=== PATIENT | female | born 1950 | race Caucasian/White ===

== ENCOUNTER 2018-06-05 09:02 | Outpatient (REF) | payer MEDICARE, OTHER, SELFPAY ==
[2018-06-05 12:11] LABS: Cholesterol 181 mg/dL (50-200); Glucose 128 mg/dL (70-100); HDL Cholesterol 42 mg/dL (40-60); LDL CHOLESTEROL 96 mg/dL (<100); Triglyceride 351 mg/dL (30-150)
== END 2018-06-05 09:22 ==
LOC: NCHCN 09:02
PROVIDERS: Visit Provider Family Medicine
DX: R73.01 Impaired fasting glucose (principal); E78.00 Pure hypercholesterolemia, unspecified
CPT/HCPCS: 80061; 82947; 83721

== ENCOUNTER 2018-06-12 09:54 | Outpatient (REF) | payer MEDICARE, SELFPAY ==
[2018-06-12 13:18] LABS: Hemoglobin A1C 6.4 % (4.5-6.2)
[2018-06-12 13:19] LABS: ALT 56 U/L (12-78); AST 42 U/L (15-37); Alkaline Phosphatase 91 U/L (46-116); Anion Gap 10.7 mmol/L (3-11); BUN 20 mg/dL (7-18); Bilirubin, Total 0.5 mg/dL (0.2-1.0); CO2 26.3 mmol/L (21.0-32.0); Calcium 10.1 mg/dL (8.5-10.1); Chloride 103 mmol/L (98-107); Glucose 203 mg/dL (70-100); Potassium 4.4 mmol/L (3.5-5.1); Sodium 140 mmol/L (136-145); Total Protein 7.2 g/dL (6.4-8.2)
== END 2018-06-12 10:14 ==
LOC: NCHCN 09:54
PROVIDERS: Visit Provider Family Medicine
DX: E83.52 Hypercalcemia (principal); R73.01 Impaired fasting glucose
CPT/HCPCS: 80053; 83036

== ENCOUNTER 2018-07-16 11:51 | Outpatient (REF) | payer MEDICARE, SELFPAY ==
[2018-07-16 21:37] LABS: Bilirubin Negative (Negative); Blood Moderate (Negative); Clarity Cloudy; Glucose Negative (Negative); Ketones Negative (Negative); Leukocyte Esterase Negative (Negative); Nitrite Negative (Negative); Specific Gravity 1.025 (1.005-1.025)
[2018-07-16 21:55] LABS: Bacteria Many HPF (Negative); C & S Indicated? C&S Done As Ordered; Casts Negative LPF (Negative); Crystals Negative HPF (Negative); Epithelial Cells Few HPF (Negative); Mucus Negative (Negative); RBC Negative (0-2); WBC 0-2 HPF (0-5)
== END 2018-07-16 12:11 ==
LOC: NCHCN 11:51
PROVIDERS: Visit Provider Nurse Practitioner Family
DX: M54.89 Other dorsalgia (principal); R82.90 Unspecified abnormal findings in urine
CPT/HCPCS: 81003; 81015; 87086

== ENCOUNTER 2018-07-22 12:10 | Outpatient (REF) | payer MEDICARE, SELFPAY ==
[2018-07-22 12:41] LABS: Bilirubin Negative (Negative); Blood Negative (Negative); Clarity Clear; Glucose 500 mg/dL (Negative); Ketones Trace mg/dL (Negative); Leukocyte Esterase Negative (Negative); Nitrite Negative (Negative); Specific Gravity >= 1.030 (1.005-1.025)
== END 2018-07-22 12:30 ==
LOC: NCHCN 12:10
PROVIDERS: Visit Provider Family Medicine
DX: R31.9 Hematuria, unspecified (principal)
CPT/HCPCS: 81003; 87086

== ENCOUNTER → 2018-10-09 10:12 | Outpatient (BNVA) | payer MEDICARE, OTHER, SELFPAY | PROVIDERS: Visit Provider Nurse Practitioner Adult Health | DX: G56.03 Carpal tunnel syndrome, bilateral upper limbs (principal) | CPT/HCPCS: 95909; 99213 ==

== ENCOUNTER 2018-12-04 11:20 | Outpatient (REF) | payer MEDICARE, OTHER, SELFPAY ==
[2018-12-04 21:11] LABS: Hemoglobin A1C 6.6 % (4.5-6.2)
[2018-12-04 21:17] LABS: ALT 51 U/L (12-78); AST 30 U/L (15-37); Anion Gap 7.8 mmol/L (3-11); BUN 23 mg/dL (7-18); CO2 28.2 mmol/L (21.0-32.0); CREATININE 0.86 mg/dL (0.55-1.02); Calcium 10.7 mg/dL (8.5-10.1); Chloride 104 mmol/L (98-107); Glucose 96 mg/dL (70-100); Potassium 4.7 mmol/L (3.5-5.1); Sodium 140 mmol/L (136-145); TSH (W/Ref FT4) 4.63 uIU/mL (0.358-3.74)
[2018-12-04 21:51] LABS: FREE T4 0.76 ng/dL (0.76-1.46)
== END 2018-12-04 11:40 ==
LOC: NCHCN 11:20
PROVIDERS: PCP Nurse Practitioner Family; Visit Provider Nurse Practitioner Family
DX: R73.01 Impaired fasting glucose (principal); E83.52 Hypercalcemia; R74.8 Abnormal levels of other serum enzymes; E21.3 Hyperparathyroidism, unspecified; I10 Essential (primary) hypertension
CPT/HCPCS: 80048; 83036; 84439; 84443; 84450; 84460

== ENCOUNTER 2018-12-25 10:57 | Outpatient (REF) | payer MEDICARE, OTHER, SELFPAY | END 2018-12-25 11:17 | LOC: NCHCN 10:57 | PROVIDERS: PCP Nurse Practitioner Family; Visit Provider Family Medicine | DX: R31.9 Hematuria, unspecified (principal) | CPT/HCPCS: 87077; 87086; 87186 ==

== ENCOUNTER 2019-01-29 06:00 | Outpatient (CLI) | payer MEDICARE, OTHER, SELFPAY ==
--- NOTE | 2019-01-29 08:57 | DI.MAMMO_ITS ---
SYMPTOMS/DIAGNOSIS: SCREENING, Z12.31 MAMMOGRAM: Mammograms were interpreted according to the usual protocol including computer analysis with CAD system, tomosynthesis and C view imaging. The breast tissue is of moderate radiodensity. There is no evidence of a dominant mass. There are no suspicious calcifications and there has been no significant interval change when compared with prior images. SUMMARY: No evidence of malignancy, Category I, yearly screening mammography is recommended. Category B for breast density. SA ASSESSMENT OF FINDINGS: Negative. Category 1. Patient will receive a letter notifying them of these results. BI-RADS category B. There are scattered areas of fibroglandular density.
== END 2019-01-29 06:20 ==
PROVIDERS: PCP Nurse Practitioner Family; Visit Provider Family Medicine
DX: Z12.31 Encounter for screening mammogram for malignant neoplasm of breast (principal)
CPT/HCPCS: 77063; 77067

== ENCOUNTER 2019-05-28 08:31 | Outpatient (REF) | payer MEDICARE, OTHER, SELFPAY ==
[2019-05-28 14:54] LABS: TSH 6.37 uIU/mL (0.36-3.74)
[2019-05-28 18:32] LABS: Hemoglobin A1C 6.5 % (4.5-6.2)
== END 2019-05-28 08:51 ==
LOC: NCHCN 08:31
PROVIDERS: PCP Nurse Practitioner Family; Visit Provider Family Medicine
DX: E03.9 Hypothyroidism, unspecified (principal); R73.01 Impaired fasting glucose; E66.9 Obesity, unspecified
CPT/HCPCS: 83036; 84443

== ENCOUNTER 2019-08-27 08:36 | Outpatient (REF) | payer MEDICARE, OTHER, SELFPAY ==
[2019-08-27 12:40] LABS: Hemoglobin A1C 6.6 % (3.8-5.6)
[2019-08-27 12:46] LABS: TSH 6.23 uIU/mL (0.36-3.74)
== END 2019-08-27 08:56 ==
LOC: NCHCN 08:36
PROVIDERS: PCP Nurse Practitioner Family; Visit Provider Family Medicine
DX: E11.9 Type 2 diabetes mellitus without complications (principal); E03.9 Hypothyroidism, unspecified; E21.3 Hyperparathyroidism, unspecified; E66.9 Obesity, unspecified
CPT/HCPCS: 83036; 84443

== ENCOUNTER 2019-11-05 13:21 | Outpatient (REF) | payer MEDICARE, OTHER, SELFPAY ==
[2019-11-05 12:35] LABS: TSH (W/Ref FT4) 3.98 uIU/mL (0.36-3.74)
[2019-11-05 13:14] LABS: FREE T4 1.27 ng/dL (0.76-1.46)
== END 2019-11-05 13:41 ==
LOC: NCHCN 13:21
PROVIDERS: PCP Nurse Practitioner Family; Visit Provider Urology
DX: E03.9 Hypothyroidism, unspecified (principal)
CPT/HCPCS: 84439; 84443

== ENCOUNTER 2020-04-06 09:31 | Outpatient (REF) | payer MEDICARE, OTHER, SELFPAY ==
[2020-04-06 20:43] LABS: Anion Gap 11.1 mmol/L (3-11); BUN 17 mg/dL (7-18); C-Reactive Protein 0.93 mg/dL (0.0-0.3); CO2 24.9 mmol/L (21.0-32.0); CREATININE 0.97 mg/dL (0.55-1.02); Calcium 10.3 mg/dL (8.5-10.1); Chloride 101 mmol/L (98-107); Estimated GFR 56.61 (mL/min/1.73m2); Glucose 266 mg/dL (74-106); Potassium 4.5 mmol/L (3.5-5.1); Sodium 137 mmol/L (136-145)
[2020-04-06 20:48] LABS: ESR 12 mm/hr (0-30)
[2020-04-11 13:50] LABS: TSH (W/Ref FT4) 4.22 uIU/mL (0.36-3.74)
[2020-04-11 14:08] LABS: FREE T4 1.26 ng/dL (0.76-1.46)
== END 2020-04-06 09:51 ==
LOC: NCHCN 09:31
PROVIDERS: PCP Nurse Practitioner Family; Visit Provider Family Medicine
DX: H57.11 Ocular pain, right eye (principal); E03.9 Hypothyroidism, unspecified
CPT/HCPCS: 80048; 85652; 84439; 84443; 86140

== ENCOUNTER 2020-04-08 03:30 | Outpatient (CLI) | payer MEDICARE, OTHER, SELFPAY ==
[2020-04-08] MEDS: Normal Saline - Diluent 50 ML VIAL IV (12:58)
[2020-04-08] MEDS: Omnipaque 350 MG/ML 100 ML BTL IJ (12:58)
--- NOTE | 2020-04-08 13:00 | DI.CT_ITS ---
EXAM: CT HEAD WO/W CLINICAL HISTORY: RT EYE PAIN, H57.11 TECHNIQUE: COMPARISON: No exams were available for comparison FINDINGS: CT examination was performed prior to and following the intravenous infusion of 100 cc of Omnipaque 3 50. There is moderate generalized cerebral atrophy. There is no mass lesion or enhancing lesion. V isualized paranasal sinuses and mastoid air cells are clear. The orbits are normal in appearance. T he temporal bone structures are unremarkable. There is normal appearance of the visualized vasculatu re in the region of the [id number]-Rtaorm. No aneurysm identified. No intracranial hemorrhage, mass effect, or midline shift. IMPRESSION: Negative cranial CT without and with contrast administration. Unremarkable appearance of the orbits and orbital contents.
== END 2020-04-08 03:50 ==
PROVIDERS: PCP Family Medicine; Visit Provider Family Medicine
DX: H57.11 Ocular pain, right eye (principal)
CPT/HCPCS: 70470; J3490

== ENCOUNTER 2020-04-13 16:41 | Outpatient (REF) | payer MEDICARE, OTHER, SELFPAY ==
[2020-04-13 20:39] LABS: HCT 46.2 % (36.0-46.0); HGB 14.9 g/dL (11.2-15.7); MCH 28.5 pg (27.0-33.0); MCHC 32.3 % (32.0-36.0); MCV 88.3 fL (80-95); MPV 10.3 fL (8.0-11.0); Platelet Count 291 10^3/uL (130-400); RBC 5.23 10^6/uL (3.93-5.22); RDW 13.5 % (11.7-14.6); RDW-SD 43.7 fL
[2020-04-13 20:54] LABS: ALT 48 U/L (14-59); AST 36 U/L (15-37); Albumin 4.1 g/dL (3.4-5.0); Alkaline Phosphatase 94 U/L (46-116); Bilirubin, Direct 0.11 mg/dL (0.00-0.20); Bilirubin, Total 0.5 mg/dL (0.2-1.0); Total Protein 7.3 g/dL (6.4-8.2)
== END 2020-04-13 17:01 ==
LOC: NCHCN 16:41
PROVIDERS: PCP Family Medicine; Visit Provider Family Medicine
DX: G50.0 Trigeminal neuralgia (principal)
CPT/HCPCS: 80076; 85027

== ENCOUNTER → 2020-04-14 12:35 | Outpatient (BNVA) | payer MEDICARE, OTHER, SELFPAY | PROVIDERS: PCP Family Medicine; Referring Provider Family Medicine; Visit Provider Psychiatry & Neurology Neurology | DX: G50.0 Trigeminal neuralgia (principal); I10 Essential (primary) hypertension; E11.9 Type 2 diabetes mellitus without complications | CPT/HCPCS: 99215 ==

== ENCOUNTER 2020-04-21 00:47 | Outpatient (CLI) | payer MEDICARE, OTHER, SELFPAY ==
[2020-04-21] MEDS: Gadoterate meglumine 20 ML VIAL 10 ML IVP (14:16)
[2020-04-21] MEDS: Normal Saline Flush 10 ML SYR IVP (14:17)
--- NOTE | 2020-04-21 14:45 | DI.MRI_ITS ---
EXAM: MR BRAIN WO/W CLINICAL HISTORY: new R TGN;,G50.0. TECHNIQUE: Multiplanar multisequence MRI of the brain and internal auditory canals was performed. CONTRAST MATERIAL: IV Contrast: 20 ML of Dotarem contrast administered. COMPARISON: CT CT HEAD WO/W from 04/08/2020 FINDINGS: VENTRICLES AND EXTRA AXIAL SPACES: Normal in size and morphology for the patient's age. HEMORRHAGE: None. CEREBRAL PARENCHYMA: Mild atrophy and white matter changes likely reflecting small vessel disease. N o focus of restricted diffusion to suggest acute infarct. No space-occupying lesion identified. MIDLINE SHIFT: None. BRAINSTEM/CEREBELLUM: Normal. CALVARIUM: Normal. ENHANCEMENT: No suspicious enhancement identified. VISUALIZED PARANASAL SINUSES/MASTOIDS: Minimal mucus at floor of left maxillary sinus. OTHER FINDINGS: The orbits and pituitary are unremarkable. No abnormality is seen along the course o f the 5th nerves. The vascular flow voids appear intact. IMPRESSION: Mild atrophy and white matter changes of small vessel disease. No evidence of a mass or abnormal are as of enhancement. No abnormality along 5th nerves are detected. DATA REPOSITORY:
== END 2020-04-21 01:07 ==
PROVIDERS: PCP Family Medicine; Visit Provider Psychiatry & Neurology Neurology
DX: G50.0 Trigeminal neuralgia (principal); G31.9 Degenerative disease of nervous system, unspecified; I67.89 Other cerebrovascular disease
CPT/HCPCS: 70553

== ENCOUNTER → 2020-05-11 14:03 | Outpatient (BNVA) | payer MEDICARE, OTHER, SELFPAY | PROVIDERS: PCP Family Medicine; Referring Provider Family Medicine; Visit Provider Psychiatry & Neurology Neurology | DX: G50.0 Trigeminal neuralgia (principal); L27.0 Generalized skin eruption due to drugs and medicaments taken internally; I10 Essential (primary) hypertension; E11.9 Type 2 diabetes mellitus without complications; E78.5 Hyperlipidemia, unspecified; E03.9 Hypothyroidism, unspecified; N32.81 Overactive bladder; R35.0 Frequency of micturition; R32 Unspecified urinary incontinence | CPT/HCPCS: 99213 ==

== ENCOUNTER → 2020-05-31 12:48 | Outpatient (BNVA) | payer MEDICARE, OTHER, SELFPAY | PROVIDERS: PCP Family Medicine; Referring Provider Family Medicine; Visit Provider Psychiatry & Neurology Neurology | DX: G50.0 Trigeminal neuralgia (principal); I10 Essential (primary) hypertension; E11.9 Type 2 diabetes mellitus without complications | CPT/HCPCS: 99213 ==

== ENCOUNTER 2020-07-04 21:26 | Outpatient (REF) | payer MEDICARE, OTHER, SELFPAY ==
[2020-07-04 21:49] LABS: TSH (W/Ref FT4) 3.22 uIU/mL (0.36-3.74)
== END 2020-07-04 21:46 ==
LOC: NCHCN 21:26
PROVIDERS: PCP Family Medicine; Visit Provider Nurse Practitioner Family
DX: E03.9 Hypothyroidism, unspecified (principal)
CPT/HCPCS: 84443

== ENCOUNTER → 2020-11-29 07:14 | Outpatient (BNVA) | payer MEDICARE, OTHER, SELFPAY | PROVIDERS: PCP Family Medicine; Referring Provider Family Medicine; Visit Provider Psychiatry & Neurology Neurology | DX: G50.0 Trigeminal neuralgia (principal) | CPT/HCPCS: 99442 ==

== ENCOUNTER 2021-01-05 08:20 | Outpatient (REF) | payer MEDICARE, OTHER, SELFPAY ==
[2021-01-05 12:56] LABS: HCT 47.1 % (36.0-46.0); HGB 14.9 g/dL (11.2-15.7); MCH 28.6 pg (27.0-33.0); MCHC 31.6 % (32.0-36.0); MCV 90.4 fL (80-95); MPV 10.1 fL (8.0-11.0); Platelet Count 300 10^3/uL (130-400); RBC 5.21 10^6/uL (3.93-5.22); RDW 13.7 % (11.7-14.6); RDW-SD 45.8 fL; WBC 6.97 10^3/uL (4.4-10.8)
[2021-01-05 13:17] LABS: Hemoglobin A1C 6.5 % (<5.7)
[2021-01-05 13:26] LABS: ALT 33 U/L (14-59); AST 19 U/L (15-37); Albumin 4.1 g/dL (3.4-5.0); Alkaline Phosphatase 94 U/L (46-116); BUN 16 mg/dL (7-18); Bilirubin, Total 0.6 mg/dL (0.2-1.0); CREATININE 0.9 mg/dL (0.55-1.02); Calculated LDL 86 mg/dL (<100); Chloride 105 mmol/L (98-107); Cholesterol 196 mg/dL (<200); Glucose 141 mg/dL (74-106); HDL Cholesterol 36 mg/dL (40-60); Potassium 5.1 mmol/L (3.5-5.1); Sodium 142 mmol/L (136-145); TSH (W/Ref FT4) 3.61 uIU/mL (0.36-3.74); Total Protein 7.1 g/dL (6.4-8.2); Triglyceride 370 mg/dL (<150)
== END 2021-01-05 08:21 | disposition home or self-care (01) ==
LOC: NCHCN 08:20
PROVIDERS: PCP Family Medicine; Visit Provider Family Medicine
DX: E03.9 Hypothyroidism, unspecified (principal); E83.52 Hypercalcemia; I10 Essential (primary) hypertension; E78.00 Pure hypercholesterolemia, unspecified; R73.09 Other abnormal glucose
CPT/HCPCS: 80053; 80061; 85027; 83036; 84443

== ENCOUNTER 2021-01-16 02:27 | Outpatient (CLI) | payer MEDICARE, OTHER, SELFPAY ==
--- NOTE | 2021-01-16 | DI.MAMMO_ITS ---
Exam(s) MAMMO SCREENING EXAM: MAMMO SCREENING CLINICAL HISTORY: SCREENING, Z12.31. TECHNIQUE: Bilateral full field digital CC and MLO mammographic images were obtained with 3D tomosyn thesis and utilizing computer aided detection (CAD). COMPARISON: Prior mammograms dating back to 2011, the most recent being December 2018. FINDINGS: There has been no significant change in the appearance and distribution of the fibroglandular tissue. There are no new spiculated masses nor malignant appearing microcalcification groups. There is no significant architectural distortion nor skin thickening-retraction. IMPRESSION: No radiographic evidence of malignancy. BI-RADS Category 1 - Negative Breast Density - Category B - Scattered areas of fibroglandular density Breast density Category C or D implies that the patient has dense breast tissue. Dense breast tissue can make it harder to find cancer on a mammogram. Dense breast tissue is also associated with an incr eased risk of breast cancer. This information about the result of the mammogram report was provided to the patient to raise their awareness. Use this report when you speak with the patient about their risks for breast cancer, which includes their family history. At that time, you may recommend additional screening tests (Ultrasoun d or MRI) as these tests may add significant information. A negative radiographic report should not delay biopsy if a dominant or clinically suspicious mass is present. Up to ten percent of cancers are not identified on mammography. A negative report may reinforce clinical impression. Adenosis and dense breasts may obscure an underlying neoplasm. False positive reports average 6 to 10%. Patient will receive a letter notifying them of these results.
== END 2021-01-16 02:47 ==
PROVIDERS: PCP Family Medicine; Visit Provider Nurse Practitioner Family
DX: Z12.31 Encounter for screening mammogram for malignant neoplasm of breast (principal)
CPT/HCPCS: 77063; 77067

== ENCOUNTER → 2021-05-30 10:47 | Outpatient (BNVA) | payer MEDICARE, OTHER, SELFPAY | PROVIDERS: PCP Family Medicine; Referring Provider Family Medicine; Visit Provider Psychiatry & Neurology Neurology | DX: G50.0 Trigeminal neuralgia (principal) | CPT/HCPCS: 99212 ==

== ENCOUNTER → 2022-04-03 09:37 | Outpatient (BNVA) | payer MEDICARE, OTHER, SELFPAY | PROVIDERS: PCP Family Medicine; Referring Provider Family Medicine; Visit Provider Psychiatry & Neurology Neurology | DX: I10 Essential (primary) hypertension (principal); E11.9 Type 2 diabetes mellitus without complications; G50.0 Trigeminal neuralgia | CPT/HCPCS: 99214 ==

== ENCOUNTER → 2022-05-04 13:43 | Outpatient (CLI) | payer MEDICARE, OTHER, SELFPAY ==
--- NOTE | 2022-05-04 12:27 | DI.RAD_ITS ---
Exam(s) XR LUMBAR SPINE COMPLETE EXAM: XR LUMBAR SPINE COMPLETE CLINICAL HISTORY: LOW BACK PAIN-M54.50 -- HIP JOINT PAIN-M25.551 TECHNIQUE: COMPARISON: No exams were available for comparison FINDINGS: Five views were obtained. There are Silver rods in place at L4-5 with a disc prosthesis also in place at the L4-5 level. The hardware appears intact. There are mild degenerative changes of the SI joints. There is disc space narrowing at T12-L1. Otherwise intervertebral disc spaces appear fairl y well maintained, although there is apparent vacuum disc phenomenon at L3-4 consistent with disc deg eneration. There are prominent hypertrophic endplate and facet changes throughout the lumbar region. No fracture seen. IMPRESSION: Degenerative changes of the lumbar spine as described above. Intact hardware at L4-5. RADIATION DOSE DELIVERED: Total DLP
--- NOTE | 2022-05-04 12:27 | DI.RAD_ITS ---
Exam(s) XR HIP RT COMPLETE AP PELVIS EXAM: XR HIP RT COMPLETE AP PELVIS CLINICAL HISTORY: LOW BACK PAIN-M54.50 -- HIP JOINT PAIN-M25.551 TECHNIQUE: COMPARISON: No exams were available for comparison FINDINGS: Two views were obtained. There is moderate loss of the cartilaginous joint spaces of both hips. Mod erate acetabular and femoral head marginal osteophytes also noted involving both hips. There appear to be some subchondral cysts of the right femoral head, presumably on a degenerative basis. IMPRESSION: Moderate DJD both hips. RADIATION DOSE DELIVERED: Total DLP
== END ==
PROVIDERS: PCP Family Medicine; Visit Provider Nurse Practitioner Family
DX: M25.551 Pain in right hip (principal); M16.0 Bilateral primary osteoarthritis of hip; M54.59 Other low back pain; M53.3 Sacrococcygeal disorders, not elsewhere classified; M51.36 Other intervertebral disc degeneration, lumbar region
CPT/HCPCS: 72110; 73502

== ENCOUNTER 2022-05-08 11:27 | Outpatient (REF) | payer MEDICARE, OTHER, SELFPAY ==
[2022-05-08 14:44] LABS: HCT 44.9 % (36.0-46.0); HGB 14.8 g/dL (11.2-15.7); MCH 29.2 pg (27.0-33.0); MCV 89 fL (80-95); MPV 10.2 fL (8.0-11.0); Platelet Count 280 10^3/uL (130-400); RBC 5.07 10^6/uL (3.93-5.22); RDW 13.4 % (11.7-14.6); RDW-SD 43.5 fL
[2022-05-08 15:05] LABS: ALT 30 U/L (14-59); AST 21 U/L (15-37); Alkaline Phosphatase 73 U/L (46-116); Anion Gap 8.7 mmol/L (3-11); BUN 14 mg/dL (7-18); Bilirubin, Total 0.6 mg/dL (0.2-1.0); CO2 28.3 mmol/L (21.0-32.0); CREATININE 0.9 mg/dL (0.55-1.02); Chloride 102 mmol/L (98-107); Glucose 178 mg/dL (74-106); Potassium 4.8 mmol/L (3.5-5.1); Sodium 139 mmol/L (136-145); TSH (W/Ref FT4) 4.24 uIU/mL (0.36-3.74); Total Protein 7.2 g/dL (6.4-8.2)
[2022-05-08 15:25] LABS: Calcium 10.2 mg/dL (8.5-10.1); FREE T4 1.08 ng/dL (0.76-1.46)
== END 2022-05-08 11:28 | disposition home or self-care (01) ==
LOC: NCHCN 11:27
PROVIDERS: PCP Family Medicine; Visit Provider Nurse Practitioner Family
DX: E11.9 Type 2 diabetes mellitus without complications (principal); M54.50 Low back pain, unspecified
CPT/HCPCS: 80053; 85027; 87077; 84439; 84443; 87086; 87186

== ENCOUNTER → 2022-06-07 14:59 | Outpatient (CLI) | payer MEDICARE, OTHER, SELFPAY ==
--- NOTE | 2022-06-07 | DI.CT_ITS ---
Exam(s) CT ABDOMEN PELVIS WO EXAM: CT ABDOMEN PELVIS WO INDICATION: UTI N39.0 HX NEPHROLITHIASIS Z87.442 LOW BACK PAIN M54.50. COMPARISON: No exams were available for comparison TECHNIQUE: CT examination was performed without contrast administration. FINDINGS: Images obtained through the lung bases are unremarkable. Visualized portions of the liver and splee n appear intact. Visualized portions of the pancreas are unremarkable. Gallbladder and bile ducts are CT normal. Abdominal aorta is of normal diameter. No significant abdominal wall hernia. No significant abdominal or pelvic adenopathy. Adrenals appear normal bilaterally. The kidneys are normal in size and shape. There is no evidence of a renal mass, hydronephrosis, or n ephrolithiasis. No ureteral dilatation or calcification identified. Urinary bladder is unremarkable in appearance. IMPRESSION: Negative noncontrast abdominal and pelvic CT. No urinary tract calcification or obstruction. RADIATION DOSE DELIVERED: 1,337.71mGy.cm DLP 1,337.71mGy.cm Total DLP !Error CTDIvol DATA REPOSITORY: All CT scans at this facility are submitted to the National Radiology Data Registry (NRDR) Dose Index Registry (DIR) with the [employer] ([employer]). RADIATION OPTIMIZATION: All CT scans at this facility use at least one of these dose optimization te chniques: automated exposure control; mA and/or kV adjustment per patient size (includes targeted exa ms where dose is matched to clinical indication); or iterative reconstruction.
== END ==
PROVIDERS: PCP Family Medicine; Visit Provider Nurse Practitioner Family
DX: N39.0 Urinary tract infection, site not specified (principal); M54.59 Other low back pain; Z87.442 Personal history of urinary calculi
CPT/HCPCS: 74176

== ENCOUNTER 2022-06-07 21:06 | Outpatient (REF) | payer MEDICARE, OTHER, SELFPAY ==
[2022-06-07 16:22] LABS: ALT 32 U/L (14-59); AST 29 U/L (15-37); Albumin 4.2 g/dL (3.4-5.0); Alkaline Phosphatase 129 U/L (46-116); Anion Gap 9.3 mmol/L (3-11); BUN 15 mg/dL (7-18); Bilirubin, Total 0.5 mg/dL (0.2-1.0); CO2 27.7 mmol/L (21.0-32.0); CREATININE 0.8 mg/dL (0.55-1.02); Calcium 10.6 mg/dL (8.5-10.1); Chloride 101 mmol/L (98-107); Estimated GFR 77.75 (mL/min/1.73m2); Glucose 142 mg/dL (74-106); Potassium 4.9 mmol/L (3.5-5.1); Sodium 138 mmol/L (136-145); Total Protein 7.6 g/dL (6.4-8.2)
== END 2022-06-07 21:07 | disposition home or self-care (01) ==
LOC: NCHCN 21:06
PROVIDERS: PCP Family Medicine; Visit Provider Nurse Practitioner Family
DX: N39.0 Urinary tract infection, site not specified (principal); M54.50 Low back pain, unspecified; Z87.442 Personal history of urinary calculi
CPT/HCPCS: 80053

== ENCOUNTER 2022-08-21 18:12 | Outpatient (REF) | payer MEDICARE, OTHER, SELFPAY ==
[2022-08-21 15:22] LABS: TSH 2.72 uIU/mL (0.36-3.74)
== END 2022-08-21 18:13 | disposition home or self-care (01) ==
LOC: NCHCN 18:12
PROVIDERS: PCP Family Medicine; Visit Provider Nurse Practitioner Family
DX: E03.9 Hypothyroidism, unspecified (principal)
CPT/HCPCS: 84443

== ENCOUNTER → 2022-10-03 13:03 | Outpatient (BNVA) | payer MEDICARE, OTHER, SELFPAY | PROVIDERS: PCP Family Medicine; Referring Provider Family Medicine; Visit Provider Psychiatry & Neurology Neurology | DX: I10 Essential (primary) hypertension (principal); E11.9 Type 2 diabetes mellitus without complications; G50.0 Trigeminal neuralgia | CPT/HCPCS: 99213 ==

== ENCOUNTER 2022-12-07 16:24 | Outpatient (REF) | payer MEDICARE, SELFPAY ==
[2022-12-07 15:23] LABS: HCT 44.7 % (36.0-46.0); HGB 14.2 g/dL (11.2-15.7); MCH 28.2 pg (27.0-33.0); MCHC 31.8 % (32.0-36.0); MCV 89 fL (80-95); MPV 10.1 fL (8.0-11.0); Platelet Count 310 10^3/uL (130-400); RBC 5.04 10^6/uL (3.93-5.22); RDW 13.8 % (11.7-14.6); RDW-SD 44.2 fL; WBC 7.19 10^3/uL (4.4-10.8)
[2022-12-07 15:39] LABS: ALT 35 U/L (14-59); AST 25 U/L (15-37); Alkaline Phosphatase 95 U/L (46-116); Anion Gap 8.8 mmol/L (3-11); BUN 19 mg/dL (7-18); Bilirubin, Total 0.4 mg/dL (0.2-1.0); CO2 27.2 mmol/L (21.0-32.0); CREATININE 0.9 mg/dL (0.55-1.02); Calcium 10.8 mg/dL (8.5-10.1); Chloride 101 mmol/L (98-107); Estimated GFR 67.08 (mL/min/1.73m2); Glucose 271 mg/dL (74-106); Potassium 4.6 mmol/L (3.5-5.1); Sodium 137 mmol/L (136-145); TSH (W/Ref FT4) 3.18 uIU/mL (0.36-3.74); Total Protein 7.6 g/dL (6.4-8.2)
[2022-12-07 15:44] LABS: Hemoglobin A1C 8.6 % (<5.7)
== END 2022-12-07 16:25 | disposition home or self-care (01) ==
LOC: NCHCN 16:24
PROVIDERS: PCP Family Medicine; Visit Provider Nurse Practitioner Family
DX: E11.9 Type 2 diabetes mellitus without complications (principal); E03.9 Hypothyroidism, unspecified; R53.83 Other fatigue; I10 Essential (primary) hypertension
CPT/HCPCS: 80053; 85027; 83036; 84443

== ENCOUNTER 2022-12-20 03:07 | Outpatient (CLI) | payer MEDICARE, SELFPAY ==
--- NOTE | 2022-12-20 | DI.MAMMO_ITS ---
Exam(s) MAMMO SCREENING EXAM: MAMMO SCREENING CLINICAL HISTORY: SCREENING, Z12.31,Z12.39 TECHNIQUE: Mammograms were interpreted according to the usual protocol including computer analysis w [employer] CAD system, tomosynthesis and C-view imaging. COMPARISON: 2013 through 2020 FINDINGS: The breasts are composed of scattered fibroglandular densities, Breast Density category B. No suspicious masses or suspicious microcalcifications are seen. No skin thickening or abnormal axillary lymph nodes are seen. There has been no significant change from prior exams. IMPRESSION: BI-RADS Category 1, Negative mammogram Yearly screening mammography is recommended. Breast Density - Category B, scattered fibroglandular densities. A negative radiographic report should not delay biopsy if a dominant or clinically suspicious mass is present. Up to ten percent of cancers are not identified on mammography. A negative report may reinforce clinical impression. Adenosis and dense breasts may obscure an underlying neoplasm. False positive reports average 6 to 10%. Patient will receive a letter notifying them of these results.
== END 2022-12-20 03:27 ==
LOC: DI 03:08
PROVIDERS: PCP Family Medicine; Visit Provider Nurse Practitioner Family
DX: Z12.31 Encounter for screening mammogram for malignant neoplasm of breast (principal)
CPT/HCPCS: 77063; 77067

== ENCOUNTER 2023-05-14 19:44 | Outpatient (REF) | payer MEDICARE, SELFPAY ==
[2023-05-14 18:13] LABS: Calcium 10.9 mg/dL (8.5-10.1); Cholesterol 196 mg/dL (<200); HDL Cholesterol 44 mg/dL (40-60); Triglyceride 420 mg/dL (<150)
[2023-05-14 18:34] LABS: LDL CHOLESTEROL 95 mg/dL (<100)
[2023-05-14 19:13] LABS: Vitamin D 25 Total 30.6 ng/mL (30-100)
[2023-05-15 18:28] LABS: Parathyroid Hormone,Intact 70 pg/mL (19-88)
== END 2023-05-14 19:45 | disposition home or self-care (01) ==
LOC: NCHCN 19:44
PROVIDERS: PCP Family Medicine; Visit Provider Nurse Practitioner Family
DX: E21.3 Hyperparathyroidism, unspecified (principal); E11.9 Type 2 diabetes mellitus without complications; I10 Essential (primary) hypertension
CPT/HCPCS: 80061; 82306; 83721; 82310; 83970

== ENCOUNTER 2023-11-12 12:22 | Outpatient (REF) | payer MEDICARE, SELFPAY ==
[2023-11-12 14:27] LABS: HCT 45.3 % (36.0-46.0); HGB 14.6 g/dL (11.2-15.7); MCH 28.8 pg (27.0-33.0); MCHC 32.2 % (32.0-36.0); MCV 89 fL (80-95); MPV 9.5 fL (8.0-11.0); Platelet Count 294 10^3/uL (130-400); RBC 5.07 10^6/uL (3.93-5.22); RDW 13.7 % (11.7-14.6); RDW-SD 45.1 fL; WBC 7.48 10^3/uL (4.4-10.8)
[2023-11-12 15:12] LABS: Hemoglobin A1C 6.9 % (<5.7)
[2023-11-12 15:35] LABS: ALT 40 U/L (14-59); AST 32 U/L (15-37); Alkaline Phosphatase 88 U/L (46-116); BUN 15 mg/dL (7-18); Bilirubin, Total 0.5 mg/dL (0.2-1.0); CREATININE 0.9 mg/dL (0.55-1.02); Calcium 10.5 mg/dL (8.5-10.1); Chloride 104 mmol/L (98-107); Cholesterol 198 mg/dL (<200); Estimated GFR 66.67 (mL/min/1.73m2); Glucose 176 mg/dL (74-106); HDL Cholesterol 41 mg/dL (40-60); Potassium 4.7 mmol/L (3.5-5.1); Sodium 141 mmol/L (136-145); TSH (W/Ref FT4) 3.26 uIU/mL (0.36-3.74); Total Protein 7.5 g/dL (6.4-8.2); Triglyceride 460 mg/dL (<150)
[2023-11-12 16:16] LABS: LDL CHOLESTEROL 91 mg/dL (<100)
[2023-11-12 22:06] LABS: Parathyroid Hormone,Intact 115 pg/mL (19-88)
== END 2023-11-12 12:23 | disposition home or self-care (01) ==
LOC: NCHCN 12:22
PROVIDERS: PCP Family Medicine; Visit Provider Nurse Practitioner Family
DX: I10 Essential (primary) hypertension (principal); E11.9 Type 2 diabetes mellitus without complications; E21.3 Hyperparathyroidism, unspecified; E78.00 Pure hypercholesterolemia, unspecified; E03.9 Hypothyroidism, unspecified; E55.9 Vitamin D deficiency, unspecified
CPT/HCPCS: 80053; 80061; 82306; 83721; 85027; 83036; 83970; 84443

== ENCOUNTER 2023-11-26 03:02 | Emergency (ER) | payer MEDICARE, SELFPAY ==
[2023-11-26] VITALS (40 sets, daily range): BP systolic 130–180; BP diastolic 77–150; PULSE 81–105; RESP 14–25; TEMP 36.3; O2SAT 89–95
--- NOTE | 2023-11-26 03:00 | RT.EKG_ITS ---
APPROVED REPORT Exam: Resting ECG Reason for Exam: sob Patient Location: E HR:95 bpm ECG Measurements Heart Rate 95 AXIS TX 205 P 40 QRSd 78 QRS -10 QT 351 T 18 QTc 443 Conclusion Sinus rhythm...normal P axis, V-rate 60- 99 Ventricular premature complex...V complex w/ short R-R interval Inferior infarct, old...Q >35mS, II III aVF Anterior infarct, old...Q >40mS, abnormal ST-T, V2-V5 no ST segment or T wave abnormalities to suggest occlusive OR
[2023-11-26 03:39] LABS: Abs Immature Grans 0.14 10^3/uL (0.0-0.06); Absolute Basophil Count 0.09 10^3/uL (0.0-0.2); Absolute Eosinophil Count 0.25 10^3/uL (0.0-0.7); Absolute Lymphocyte Count 2.26 10^3/uL (1.2-3.4); Absolute Monocyte Count 0.37 10^3/uL (0.1-0.8); Absolute Neutrophil Count 6.94 10^3/uL (1.2-6.7); Basophils % 0.9; Eosinophils % 2.5; HCT 44.4 % (36.0-46.0); Immature Grans % 1.4; Lymphocytes % 22.5; MCH 28.8 pg (27.0-33.0); MCHC 31.5 % (32.0-36.0); MCV 91 fL (80-95); MPV 9.2 fL (8.0-11.0); Monocytes % 3.7; Platelet Count 320 10^3/uL (130-400); RBC 4.86 10^6/uL (3.93-5.22); RDW 13.5 % (11.7-14.6); RDW-SD 45.7 fL; WBC 10.05 10^3/uL (4.4-10.8)
[2023-11-26] MEDS: Ondansetron 4 MG/2 ML VIAL IVP (03:43)
[2023-11-26 04:02] LABS: ALT 23 U/L (14-59); AST 20 U/L (15-37); Albumin 3.2 g/dL (3.4-5.0); Alkaline Phosphatase 92 U/L (46-116); Anion Gap 12.5 mmol/L (3-11); BUN 19 mg/dL (7-18); Bilirubin, Total 0.4 mg/dL (0.2-1.0); CO2 24.5 mmol/L (21.0-32.0); CREATININE 0.9 mg/dL (0.55-1.02); Calcium 10.3 mg/dL (8.5-10.1); Chloride 104 mmol/L (98-107); ETHANOL BLOOD < 3.0 mg/dL (<10); Estimated GFR 66.67 (mL/min/1.73m2); Glucose 215 mg/dL (74-106); Magnesium 1.8 mg/dL (1.8-2.4); Sodium 141 mmol/L (136-145); Total Protein 7.5 g/dL (6.4-8.2); Troponin I < 50 ng/L (< or =60)
--- NOTE | 2023-11-26 05:11 | W.ED.GENAD ---
Discharge Plan Disposition Patient Disposition: Home Condition: Good Discharge Details Clinical Impression: Vomiting Primary Care Provider: Abiola Tang ED Provider: Amada Forrest Home Meds and New Rx's Prescriptions: New ondansetron 4 mg tablet,disintegrating 4 mg PO Q8H PRNQty: 20 0RF Continued lidocaine 5 % cream 1 applic topical .q6-8hr PRN (Reason: pain) Qty: 30 3RF Rx Instructions: Apply small amount every 6-8hr to right cheek to prevent pain metoprolol succinate 25 mg tablet extended release 24 hr 25 mg PO BID naproxen sodium [Aleve] 220 mg capsule 220 mg PO BID PRN solifenacin [Vesicare] 10 mg tablet 10 mg PO DAILY venlafaxine [Effexor XR] 75 mg capsule,extended release 24hr 150 mg PO DAILY diclofenac sodium 75 mg tablet,delayed release (DR/EC) 75 mg PO BID levothyroxine [Synthroid] 75 mcg tablet 88 mcg PO DAILY gabapentin 300 mg capsule 300 mg PO BID Qty: 180 3RF Rx Instructions: am and noon along with 800mg HS gabapentin 800 mg tablet 800 mg PO QHS Qty: 90 3RF oxybutynin chloride 15 MG tablet extended release 24hr 15 mg PO DAILY simvastatin 20 MG tablet 20 mg PO HS amoxicillin 500 MG tablet 500 mg PO .PRIOR TO DENTAL cefdinir 300 mg capsule 300 mg PO Q12H Patient Comments: TAKE ONE CAPSULE BY MOUTH EVERY 12 HOURS FOR 10 DAYS FOR STREP THROAT AND EAR INFECTION Discharge Instructions Instructions: Acute Nausea and Vomiting (ED) Additional Instructions: Ondansetron up to every 8 hours as needed for vomiting. Call your primary care doctor today to schedule an appointment within the next 3 days to follow up on your visit today. Return to the emergency department for new or worsening symptoms including abodminal pain, inability to keep down fluids, feeling like you are going to pass out, chest pain, shortness of breath, or if you have any other concenrs. Referrals: Abiola Tang [Primary Care Provider] - [facility] General Mode of arrival: EMS. Date/Time Provider Initiated Documentation: 11/26/23 03:22. Limitations to Documentation: no limitations. Information obtained by: patient. HPI Narrative: 73yo F with hx of HTN, hypothyroid, presenting for acute nausea and vomiting. Woke at 0100 this morning with vomiting, nonbloody nonbilious. Has not been able to keep anything down since then. No abdominal pain or diarrhea. No dysuria or hematuria. No chest pain or shortness of breath. No known sick contacts. Received IV zofran from EMS prior to arrival. Otherwise in her usual state of health with no fevers, chills, rash, or other concerns. Related Data Home Medications Medication Instructions Recorded Confirmed oxybutynin chloride 15 mg 15 mg PO DAILY 06/24/15 11/26/23 tablet,extended release 24 hr simvastatin 20 mg tablet 20 mg PO HS 06/24/15 11/26/23 amoxicillin 500 mg tablet 500 mg PO .PRIOR TO DENTAL Prior 07/27/15 11/26/23 to dental work naproxen sodium 220 mg capsule 220 mg PO BID PRN 07/09/18 11/26/23 (Aleve) solifenacin 10 mg tablet (Vesicare) 10 mg PO DAILY 07/09/18 11/26/23 metoprolol succinate 25 mg 25 mg PO BID 10/09/18 11/26/23 tablet,extended release 24 hr levothyroxine 75 mcg tablet 88 mcg PO DAILY 05/11/20 11/26/23 (Synthroid) venlafaxine 75 mg capsule,extended 150 mg PO DAILY 05/31/20 11/26/23 release 24 hr (Effexor XR) diclofenac sodium 75 mg 75 mg PO BID 11/29/20 11/26/23 tablet,delayed release lidocaine 5 % topical cream 1 applic topical .q6-8hr PRN pain 04/03/22 11/26/23 #30 grams gabapentin 300 mg capsule 300 mg PO BID #180 caps 11/25/23 11/26/23 gabapentin 800 mg tablet 800 mg PO QHS #90 tabs 11/25/23 11/26/23 cefdinir 300 mg capsule 300 mg PO Q12H 11/26/23 11/26/23 ondansetron 4 mg disintegrating 4 mg PO Q8H PRN #20 tabs 11/26/23 tablet Previous Rx's Medication Instructions Recorded lidocaine 5 % topical cream 1 applic topical .q6-8hr PRN pain 04/03/22 #30 grams gabapentin 300 mg capsule 300 mg PO BID #180 caps 11/25/23 gabapentin 800 mg tablet 800 mg PO QHS #90 tabs 11/25/23 ondansetron 4 mg disintegrating 4 mg PO Q8H PRN #20 tabs 11/26/23 tablet Allergies Allergy/AdvReac Type Severity Reaction Status Date / Time paraben Allergy Intermediate Hives Unverified 11/26/23 03:13 General Stated Complaint: Nausea/Vomit/Diar RAMANDEEP: 3 Review of Systems Narrative: see HPI Exam Narrative Exam Narrative: General: Alert, non-toxic, well nourished Head: Normocephalic, atraumatic Neck: Trachea midline, ?Neck supple. ENT: ?MMM.? No oropharygeal lesions or exudate. Cardiac: ?RRR, no murmurs appreciated Resp: No respiratory distress. CTAB. Abd: ?Soft, non-distended, nontender : ?No suprapubic tenderness. Extremities: ?No deformities.? No peripheral edema. Neurologic: GCS 15. ? Moves all extremities freely against gravity Course Vital Signs Vital signs: Vital Signs Temperature 36.3 C L 11/26/23 03:07 Pulse 100 H 11/26/23 03:07 Respiratory Rate 14 11/26/23 03:07 Blood Pressure 166/84 H 11/26/23 03:07 Pulse Oximetry 90 L 11/26/23 03:07 Temperature 36.3 C L 11/26/23 03:16 Temperature Source Temporal Artery Scan 11/26/23 03:07 Pulse 96 H 11/26/23 03:16 Respiratory Rate 14 11/26/23 03:16 Respiratory Effort Normal, Non-Labored 11/26/23 03:15 Blood Pressure 150/81 H 11/26/23 03:16 Blood Pressure Position Sitting 11/26/23 03:16 Pulse Oximetry 92 11/26/23 03:16 Oxygen Delivery Method Room Air 11/26/23 03:16 Oxygen Flow Rate 0 11/26/23 03:07 Pain Level 0 11/26/23 03:16 Lab/Test Results Lab/Test Results: Laboratory Tests Range/Units 11/26/23 03:13 WBC (4.4-10.8) 10^3/uL 10.05 RBC (3.93-5.22) 10^6/uL 4.86 Hgb (11.2-15.7) g/dL 14.0 Hct (36.0-46.0) % 44.4 MCV (80-95) fL 91 MCH (27.0-33.0) pg 28.8 MCHC (32.0-36.0) % 31.5 L RDW (11.7-14.6) % 13.5 Plt Count (130-400) 10^3/uL 320 MPV (8.0-11.0) fL 9.2 Immature Gran % 1.4 Neutrophils % 69.0 Lymphocytes % 22.5 Monocytes % 3.7 Eosinophils % 2.5 Basophils % 0.9 Nucleated RBC % (0.0-0.3) % 0.0 Absolute Neutrophils (1.2-6.7) 10^3/uL 6.94 H Absolute Lymphocytes (1.2-3.4) 10^3/uL 2.26 Absolute Monocytes (0.1-0.8) 10^3/uL 0.37 Absolute Eosinophils (0.0-0.7) 10^3/uL 0.25 Absolute Basophils (0.0-0.2) 10^3/uL 0.09 Sodium (136-145) mmol/L 141 Potassium (3.5-5.1) mmol/L 4.0 Chloride (98-107) mmol/L 104 Carbon Dioxide (21.0-32.0) mmol/L 24.5 Anion Gap (3-11) mmol/L 12.5 H BUN (7-18) mg/dL 19 H Creatinine (0.55-1.02) mg/dL 0.9 Est GFR (CKD-EPI 2020) (mL/min/1.73m2) 66.67 Glucose (74-106) mg/dL 215 H Calcium (8.5-10.1) mg/dL 10.3 H Magnesium (1.8-2.4) mg/dL 1.8 Total Bilirubin (0.2-1.0) mg/dL 0.4 AST (15-37) U/L 20 ALT (14-59) U/L 23 Alkaline Phosphatase (46-116) U/L 92 Troponin I (< or =60) ng/L < 50 Total Protein (6.4-8.2) g/dL 7.5 Albumin (3.4-5.0) g/dL 3.2 L Ethyl Alcohol (<10) mg/dL < 3.0 Medical Decision Making 73yo F with hx of HTN, hypothyroid, presenting for acute nausea and vomiting. Woke at 0100 this morning with vomiting, nonbloody nonbilious. Has not been able to keep anything down since then. No abdominal pain or diarrhea. No dysuria or hematuria. No chest pain or shortness of breath. No known sick contacts. Received IV zofran from EMS prior to arrival. Otherwise in her usual state of health with no fevers, chills, rash, or other concerns. Hypertensive on arrival, borderline tachycardiac at 100. Reassuring physical exam, non-toxic appearing with no abdominal tenderness. EKG with no ST segment or T wave abnormalities to suggest occlusive [place]. Given IVFB. Labs reviewed as below, CBC & CMP reassuring with no actionable abnormalities, troponin negative x 2. Patient PO challenged and able to tolerate fluids and crackers. Repeat vital signs reassuring. Reports feeling much better, requests discharge home which is reasonable. Awaiting results of UA. Signed out to oncoming physician; plan to followup UA, discharge home +/- abx for UTI. Lab Data Lab results reviewed: Yes I reviewed the patient's lab results. Labs: Laboratory Tests Range/Units 11/26/23 11/26/23 03:13 06:40 WBC (4.4-10.8) 10^3/uL 10.05 RBC (3.93-5.22) 10^6/uL 4.86 Hgb (11.2-15.7) g/dL 14.0 Hct (36.0-46.0) % 44.4 MCV (80-95) fL 91 MCH (27.0-33.0) pg 28.8 MCHC (32.0-36.0) % 31.5 L RDW (11.7-14.6) % 13.5 Plt Count (130-400) 10^3/uL 320 MPV (8.0-11.0) fL 9.2 Immature Gran % 1.4 Neutrophils % 69.0 Lymphocytes % 22.5 Monocytes % 3.7 Eosinophils % 2.5 Basophils % 0.9 Nucleated RBC % (0.0-0.3) % 0.0 Absolute Neutrophils (1.2-6.7) 10^3/uL 6.94 H Absolute Lymphocytes (1.2-3.4) 10^3/uL 2.26 Absolute Monocytes (0.1-0.8) 10^3/uL 0.37 Absolute Eosinophils (0.0-0.7) 10^3/uL 0.25 Absolute Basophils (0.0-0.2) 10^3/uL 0.09 Sodium (136-145) mmol/L 141 Potassium (3.5-5.1) mmol/L 4.0 Chloride (98-107) mmol/L 104 Carbon Dioxide (21.0-32.0) mmol/L 24.5 Anion Gap (3-11) mmol/L 12.5 H BUN (7-18) mg/dL 19 H Creatinine (0.55-1.02) mg/dL 0.9 Est GFR (CKD-EPI 2020) (mL/min/1.73m2) 66.67 Glucose (74-106) mg/dL 215 H Calcium (8.5-10.1) mg/dL 10.3 H Magnesium (1.8-2.4) mg/dL 1.8 Total Bilirubin (0.2-1.0) mg/dL 0.4 AST (15-37) U/L 20 ALT (14-59) U/L 23 Alkaline Phosphatase (46-116) U/L 92 Troponin I (< or =60) ng/L < 50 < 50 Total Protein (6.4-8.2) g/dL 7.5 Albumin (3.4-5.0) g/dL 3.2 L Ethyl Alcohol (<10) mg/dL < 3.0 Quality:SDOH Health Related Social Needs: No Data to Display PFSH All Active Problems (Updated 11/26/23 @ 07:32 by Amada Forrest MD) Vomiting (Acute) Drug rash (Acute) Trigeminal neuralgia of right side of face (Acute) HLD (hyperlipidemia) (Chronic) HTN (hypertension) (Chronic) Arthritis (Chronic) Urinary tract infection with hematuria (Acute) UTI (urinary tract infection) (Acute) Medical History (Updated 11/26/23 @ 07:32 by Amada Forrest MD) History of depression Hypercholesterolemia Psoriasis, guttate Superficial thrombophlebitis Osteopenia Branch retinal vein occlusion Obesity Stress incontinence Low back pain Hx of herpes zoster Preventative health care Screening mammogram, encounter for Hypercalcemia Adult onset diabetes mellitus with ketoacidosis Vitreous hemorrhage Hyperparathyroidism Back pain Hematuria Right leg pain Elevated liver enzymes Pain, joint, hip, left Seborrheic keratoses Jessica infection Rash, skin Acute pain in right eye Hypothyroidism Lipoma Cholecystectomy planned Surgical History History of cholecystectomy S/P total knee arthroplasty History of bunionectomy History of spinal fusion History of arthroplasty of both knees History of bladder suspension procedure History of appendectomy History of hysterectomy Family History Father Arthritis Osteoarthritis Mother Hypertension Hyperlipidemia Arthritis Osteoarthritis Osteoporosis Social History Smoking/Tobacco Use Status: Never Smoking risk assessment performed?: Yes Alcohol Intake: never Drug use: Never Household members: spouse Housing: house Number of Children: 2 Pets and animals: Yes Pets and animals: dog(s) What is your relationship status?: Panel score (0-1 are the most socially isolated patients): 1 What type of physical activity do you participate in: none Seatbelt use: always
[2023-11-26 07:06] LABS: Troponin I < 50 ng/L (< or =60)
[2023-11-26 08:09] LABS: Bilirubin Negative (Negative); Blood Negative (Negative); Clarity Clear (Clear); Glucose Negative (Negative); Ketones Negative (Negative); Leukocyte Esterase Negative (Negative); Nitrite Negative (Negative); Specific Gravity 1.025 (1.005-1.025); Urobilinogen 0.2 mg/dL (Up to 0.2); pH 5.5 (5-8)
--- NOTE | 2023-11-26 08:43 | W.EDPROG ---
Date of service: 11/26/23 Time of Service: 08:45 Medical Decision Making Care signed out by Dr. Wright with plan to follow-up on urinalysis. Urinalysis reviewed and is not consistent with UTI. Patient reassessed and is tolerating p.o. intake. Plan to discharge with follow-up with PCP. Usual and customary discharge instructions were reviewed. Lab Data Lab results reviewed: Yes I reviewed the patient's lab results. Labs: Laboratory Tests Range/Units 11/26/23 11/26/23 11/26/23 03:13 06:40 08:00 WBC (4.4-10.8) 10^3/uL 10.05 RBC (3.93-5.22) 10^6/uL 4.86 Hgb (11.2-15.7) g/dL 14.0 Hct (36.0-46.0) % 44.4 MCV (80-95) fL 91 MCH (27.0-33.0) pg 28.8 MCHC (32.0-36.0) % 31.5 L RDW (11.7-14.6) % 13.5 Plt Count (130-400) 10^3/uL 320 MPV (8.0-11.0) fL 9.2 Immature Gran % 1.4 Neutrophils % 69.0 Lymphocytes % 22.5 Monocytes % 3.7 Eosinophils % 2.5 Basophils % 0.9 Nucleated RBC % (0.0-0.3) % 0.0 Absolute Neutrophils (1.2-6.7) 10^3/uL 6.94 H Absolute Lymphocytes (1.2-3.4) 10^3/uL 2.26 Absolute Monocytes (0.1-0.8) 10^3/uL 0.37 Absolute Eosinophils (0.0-0.7) 10^3/uL 0.25 Absolute Basophils (0.0-0.2) 10^3/uL 0.09 Sodium (136-145) mmol/L 141 Potassium (3.5-5.1) mmol/L 4.0 Chloride (98-107) mmol/L 104 Carbon Dioxide (21.0-32.0) mmol/L 24.5 Anion Gap (3-11) mmol/L 12.5 H BUN (7-18) mg/dL 19 H Creatinine (0.55-1.02) mg/dL 0.9 Est GFR (CKD-EPI 2020) (mL/min/1.73m2) 66.67 Glucose (74-106) mg/dL 215 H Calcium (8.5-10.1) mg/dL 10.3 H Magnesium (1.8-2.4) mg/dL 1.8 Total Bilirubin (0.2-1.0) mg/dL 0.4 AST (15-37) U/L 20 ALT (14-59) U/L 23 Alkaline Phosphatase (46-116) U/L 92 Troponin I (< or =60) ng/L < 50 < 50 Total Protein (6.4-8.2) g/dL 7.5 Albumin (3.4-5.0) g/dL 3.2 L Urine Color (Yellow) Yellow Urine Clarity (Clear) Clear Urine pH (5-8) 5.5 Ur Specific [place] (1.005-1.025) 1.025 Urine Protein (Neg-Trace) mg/dL Negative Urine Ketones (Negative) mg/dL Negative Urine Blood (Negative) Negative Urine Nitrite (Negative) Negative Urine Bilirubin (Negative) Negative Urine Urobilinogen (Up to 0.2) mg/dL 0.2 Ur Leukocyte Esterase (Negative) Negative Urine Glucose (Negative) mg/dL Negative Ethyl Alcohol (<10) mg/dL < 3.0 Quality:SDOH Health Related Social Needs: No Data to Display Sign Out Sign Out Data: Sign Out Comment: 73yo F, acute N/V, benign abdomen. Labs reassuring. Tolerating PO with zofran. Awaiting UA. Plan to dc home after UA , abx if UTI. Last updated by Amada Forrest MD at 11/26/23 08:06 Discharge Plan Disposition Patient Disposition: Home Condition: Good Discharge Details Clinical Impression: Vomiting Primary Care Provider: Abiola Tang ED Provider: Jared Martins Home Meds and New Rx's Prescriptions: New ondansetron 4 mg tablet,disintegrating 4 mg PO Q8H PRNQty: 20 0RF Continued lidocaine 5 % cream 1 applic topical .q6-8hr PRN (Reason: pain) Qty: 30 3RF Rx Instructions: Apply small amount every 6-8hr to right cheek to prevent pain metoprolol succinate 25 mg tablet extended release 24 hr 25 mg PO BID naproxen sodium [Aleve] 220 mg capsule 220 mg PO BID PRN solifenacin [Vesicare] 10 mg tablet 10 mg PO DAILY venlafaxine [Effexor XR] 75 mg capsule,extended release 24hr 150 mg PO DAILY diclofenac sodium 75 mg tablet,delayed release (DR/EC) 75 mg PO BID levothyroxine [Synthroid] 75 mcg tablet 88 mcg PO DAILY gabapentin 300 mg capsule 300 mg PO BID Qty: 180 3RF Rx Instructions: am and noon along with 800mg HS gabapentin 800 mg tablet 800 mg PO QHS Qty: 90 3RF oxybutynin chloride 15 MG tablet extended release 24hr 15 mg PO DAILY simvastatin 20 MG tablet 20 mg PO HS amoxicillin 500 MG tablet 500 mg PO .PRIOR TO DENTAL cefdinir 300 mg capsule 300 mg PO Q12H Patient Comments: TAKE ONE CAPSULE BY MOUTH EVERY 12 HOURS FOR 10 DAYS FOR STREP THROAT AND EAR INFECTION Discharge Instructions Instructions: Acute Nausea and Vomiting (ED) Additional Instructions: Please take Ondansetron up to every 8 hours as prescribed for vomiting. Call your primary care doctor today to schedule an appointment within the next 3 days to follow up on your visit today. Return to the emergency department for new or worsening symptoms including abodminal pain, inability to keep down fluids, feeling like you are going to pass out, chest pain, shortness of breath, or if you have any other concerns. Referrals: Abiola Tang [Primary Care Provider] -
== END 2023-11-26 08:55 | disposition home or self-care (01) ==
PROVIDERS: Student in an Organized Health Care Education/Training Program; Emergency Provider Student in an Organized Health Care Education/Training Program; PCP Family Medicine
DX: R11.2 Nausea with vomiting, unspecified (principal); E11.9 Type 2 diabetes mellitus without complications; I10 Essential (primary) hypertension; R94.31 Abnormal electrocardiogram [ECG] [EKG]; Z98.1 Arthrodesis status
CPT/HCPCS: 00123; 36415; 80053; 93005; 96374; 99284; 80320; 81003; 83735; 84484; 85025; 93010; J2405

== ENCOUNTER → 2023-12-02 12:28 | Outpatient (BNVA) | payer MEDICARE, SELFPAY | PROVIDERS: PCP Family Medicine; Referring Provider Family Medicine; Visit Provider Psychiatry & Neurology Neurology | DX: G50.0 Trigeminal neuralgia (principal) | CPT/HCPCS: 99213 ==

== ENCOUNTER → 2024-02-04 10:09 | Outpatient (BNVA) | payer MEDICARE, SELFPAY | PROVIDERS: PCP Family Medicine; Referring Provider Family Medicine; Visit Provider Psychiatry & Neurology Neurology | DX: G50.0 Trigeminal neuralgia (principal) | CPT/HCPCS: 99213 ==

== ENCOUNTER 2024-02-11 18:28 | Outpatient (REF) | payer MEDICARE, SELFPAY ==
[2024-02-11 17:10] LABS: Calcium 10.8 mg/dL (8.5-10.1); Vitamin D 25 Total 30.3 ng/mL (30-100)
[2024-02-12 17:55] LABS: Parathyroid Hormone,Intact 97 pg/mL (19-88)
== END 2024-02-11 18:29 | disposition home or self-care (01) ==
LOC: NCHCN 18:28
PROVIDERS: PCP Family Medicine; Visit Provider Nurse Practitioner Family
DX: D35.1 Benign neoplasm of parathyroid gland (principal)
CPT/HCPCS: 82306; 82310; 83970

== ENCOUNTER → 2024-02-20 00:15 | Outpatient (CLI) | payer MEDICARE, SELFPAY ==
--- NOTE | 2024-02-20 | DI.DEXA_ITS ---
Exam(s) XR DEXA BONE DENSITY W/WO OSMANI EXAM: XR DEXA BONE DENSITY W/WO OSMANI CLINICAL HISTORY: M85.88 Other specified disorders of bone and structure, other site TECHNIQUE: COMPARISON: DX from 03/19/2017 FINDINGS: Lateral Spine Image: Unremarkable. No compression deformities identified. Left hip: Total T-Score: -1.5. This compares to 0.1 on the prior examination. Total Z-Score: 0.3 T- and Z-scores: Findings are consistent with osteopenia. There is no evidence of osteoporosis. Lumbar Spine: Total T-Score: 0.2. This compares to -1.0 on the prior examination. Total Z-Score: 2.5 T- and Z-scores: Within normal limits. There is no evidence of osteoporosis. IMPRESSION: No evidence of osteoporosis.
== END ==
PROVIDERS: PCP Family Medicine; Visit Provider Nurse Practitioner Family
DX: M85.88 Other specified disorders of bone density and structure, other site (principal); Z13.820 Encounter for screening for osteoporosis
CPT/HCPCS: 77080

== ENCOUNTER → 2024-03-04 02:00 | Outpatient (CLI) | payer MEDICARE, SELFPAY ==
--- NOTE | 2024-03-04 | DI.US_ITS ---
Exam(s) US THYROID EXAM: US THYROID CLINICAL HISTORY: THYROID NODULE, E04.1. TECHNIQUE: Ultrasound thyroid performed using standard protocol. COMPARISON: None. FINDINGS: Apparently there has been prior moderate right thyroid lobectomy RIGHT THYROID LOBE: Surgically absent. No abnormal masses nor lymph nodes in this region LEFT THYROID LOBE: Measures 1.8 cm AP x 2.0 wide x 5.1 cm craniocaudal There is a solitary small nodule in the superior aspect of the left lobe. This nodule measures 0.8 x 0.5 x 0.6 cm. TiRads grading of this nodule is as follows: Composition: Solid-2 points Echogenicity: Hypoechoic-2 points Shape: Wider than taller in the transverse plane-0 points Margin: Smooth-0 points Echogenic Foci: None-0 points Total points for this nodule: 4 ACR Ti-Rads Category: 4 This TR 4 level nodule can be followed as it measures less than 1.5 cm. LYMPH NODES: There is no significant adenopathy. IMPRESSION: 1. The right thyroid lobe is surgically absent. There is no evidence of mass nor lymphadenopathy in this region. 2. There is a solitary small 8 x 5 x 6 mm solid nodule in the superior aspect of the left lobe which is a TR 4 level nodule and does not require biopsy as it measures less than 15mm.. Recommend repeat ultrasound in 1 year, earlier if clinically indicated. 3. There is no significant lymphadenopathy. DATA REPOSITORY:
== END ==
PROVIDERS: PCP Nurse Practitioner Family; Visit Provider Nurse Practitioner Family
DX: E04.1 Nontoxic single thyroid nodule (principal)
CPT/HCPCS: 76536

== ENCOUNTER → 2024-03-16 02:40 | Outpatient (CLI) | payer MEDICARE, SELFPAY ==
--- NOTE | 2024-03-16 07:15 | DI.MRI_ITS ---
Exam(s) MR IAC BRAIN WO/W EXAM: MR IAC BRAIN WO/W CLINICAL HISTORY: mass right middle ear,sensation fullness both ears,h93.8x1 TECHNIQUE: Multiplanar multisequence MRI of the brain was performed. Both noninfused and contrast i nfused sequences were performed. IV Contrast injected was cc Dotarem. COMPARISON: MR MR BRAIN WO/W from 04/21/2020 FINDINGS: CEREBRAL PARENCHYMA: No evidence of intracranial hemorrhage, mass effect nor shift of midline structu re. No extraaxial fluid collections. Ventricles are not enlarged nor shifted. There is no significant focal signal abnormality in the cerebellar hemispheres nor within the [place], m idbrain, and thalami. There are multiple small bilateral foci of FLAIR bright signal abnormality not associated with hemorr chevy, surrounding edema, nor restricted diffusion and most probably consistent with chronic small ves charleen disease. DWI: No areas of restricted diffusion to suggest acute ischemic event. SWI: No microhemorrhages evident. There are no ring enhancing lesions in the brain. There is no abnormal meningeal enhancement. IAC'S: There is no evidence of mass in the cerebellopontine angles and there is no evidence of intra canalicular acoustic neuroma-schwannoma. The 7th and 8th cranial nerves appear unremarkable within t he bilateral internal auditory canals. PITUITARY GLAND: No mass nor parasellar abnormality. No obvious abnormality in the cavernous sinuses. FLOW VOIDS: The expected flow void are noted. No evidence of obvious aneurysm nor obvious vascular ma lformation. PARANASAL SINUSES: Some focal mucosal thickening is noted anteriorly in the left maxillary sinus whic h is most probably post inflammatory retention cysts, not associated with fluid in the sinus. The ri ght maxillary sinus is clear as are the sphenoid and frontal sinuses. ORBITS: Evidence of prior left eye cataract surgery. IMPRESSION: 1. Evidence of acoustic neuroma-schwannoma, as per request. 2. There are multiple foci of lateral FLAIR bright white matter signal abnormality associated with he morrhage, surrounding edema, nor restricted diffusion nor abnormal enhancement and most probably cons istent with chronic small-vessel white matter ischemic changes. There are no ring enhancing lesions in the brain and there is no abnormal meningeal enhancement. DATA REPOSITORY:
[2024-03-16] MEDS: Gadoterate meglumine 20 ML SYRINGE IVP (10:43)
[2024-03-16] MEDS: Normal Saline Flush 10 ML SYR IJ (10:44)
== END ==
PROVIDERS: PCP Nurse Practitioner Family; Visit Provider Registered Nurse Maternal Newborn
DX: H93.8X3 Other specified disorders of ear, bilateral (principal); H93.8X1 Other specified disorders of right ear
CPT/HCPCS: 70553

== ENCOUNTER 2024-05-10 11:59 | Emergency (ER) | payer MEDICARE, SELFPAY ==
[2024-05-10 12:04] VITALS: BP 149/87; PULSE 84; RESP 16; TEMP 36.6; O2SAT 95
--- NOTE | 2024-05-10 12:30 | DI.RAD_ITS ---
Exam(s) XR CHEST 2V PA LATERAL EXAM: XR CHEST 2V PA LATERAL CLINICAL HISTORY: right flank pain TECHNIQUE: 2D digital imaging was performed of the chest. Two images were obtained. PA and lateral views were obtained. COMPARISON: No exams were available for comparison FINDINGS: MEDIASTINUM: Normal. HEART: Normal. PULMONARY VASCULATURE: Normal. LUNGS: Clear. PLEURAL SPACE: No pleural effusion or pneumothorax. BONE:Within normal limits for the patient's age. OTHER FINDINGS:Normal. IMPRESSION: No acute pulmonary findings. DATA REPOSITORY: RADIATION DOSE DELIVERED:
[2024-05-10 12:48] LABS: Bilirubin Negative (Negative); Blood Negative (Negative); Clarity Sl Cloudy (Clear); Glucose 500 mg/dL (Negative); Ketones Trace mg/dL (Negative); Leukocyte Esterase Negative (Negative); Nitrite Negative (Negative); Specific Gravity >= 1.030 (1.005-1.025); pH 5.5 (5-8)
[2024-05-10 12:54] LABS: Abs Immature Grans 0.05 10^3/uL (0.0-0.06); Absolute Basophil Count 0.05 10^3/uL (0.0-0.2); Absolute Lymphocyte Count 3.55 10^3/uL (1.2-3.4); Basophils % 0.5 %; HGB 14.9 g/dL (11.2-15.7); Immature Grans % 0.5 %; MCH 28.5 pg (27.0-33.0); MCHC 33.1 % (32.0-36.0); MCV 86 fL (80-95); Monocytes % 6.1 %; Neutrophils % 55.9 %; Platelet Count 286 10^3/uL (130-400); RBC 5.23 10^6/uL (3.93-5.22); RDW 13.7 % (11.7-14.6); RDW-SD 43.1 fL; WBC 9.85 10^3/uL (4.4-10.8)
[2024-05-10 13:08] LABS: ALT 45 U/L (14-59); AST 27 U/L (15-37); Albumin 3.8 g/dL (3.4-5.0); Alkaline Phosphatase 93 U/L (46-116); Anion Gap 9.2 mmol/L (3-11); BUN 21 mg/dL (7-18); Bilirubin, Total 0.54 mg/dL (0.2-1.0); CO2 24.8 mmol/L (21.0-32.0); CREATININE 1.1 mg/dL (0.55-1.02); Calcium 11.1 mg/dL (8.5-10.1); Chloride 101 mmol/L (98-107); Glucose 200 mg/dL (74-106); Lipase 37 U/L (16-77); Potassium 3.9 mmol/L (3.5-5.1); Sodium 135 mmol/L (136-145); Total Protein 7.4 g/dL (6.4-8.2)
[2024-05-10] MEDS: ACETAMINOPHEN 1,000 MG/100 ML BTL 400 MG IVPB (13:20)
[2024-05-10] MEDS: Normal Saline 500 ML IV (13:21)
[2024-05-10] MEDS: Omnipaque 350 MG/ML 100 ML BTL IJ (14:17)
[2024-05-10] MEDS: Normal Saline - Diluent 50 ML VIAL IJ (14:18)
--- NOTE | 2024-05-10 14:21 | DI.CT_ITS ---
Exam(s) CT ABDOMEN PELVIS W EXAM: CT ABDOMEN PELVIS W CLINICAL HISTORY: right flank pain TECHNIQUE: Imaging Protocol: Axial computed tomography images with coronal and sagittal reformatted images were created and reviewed. CONTRAST MATERIAL: Intravenous: Omnipaque 350 Contrast volume:100 mL Oral: No COMPARISON: CT CT ABDOMEN PELVIS WO from 06/07/2022 FINDINGS: ABDOMEN: Lung Bases: Normal where visualized. Liver: There is diffuse decreased attenuation of the liver consistent with fatty infiltration. The l iver is enlarged measuring 20 cm in length. No measurable mass. Portal, Superior Mesenteric, and Splenic Veins: Unremarkable. Gallbladder and Biliary Tract: Status post cholecystectomy. No biliary ductal dilatation. Pancreas: Normal density, no abnormal calcifications or inflammatory process. Spleen: Normal. Adrenals: No masses seen. Kidneys: Normal size, contour and axis. No radiodense stones or obstructive uropathy. There is a simp le cyst again seen at the inferior pole of the right kidney. No follow-up is recommended. Abdominal Aorta: Abdominal portion non-dilated. Atherosclerotic calcification is present. Bowel: There is diverticulosis in the colon. There is no evidence of acute diverticulitis. There is a moderate amount of stool throughout the colon. There is no evidence of bowel wall thickening or o bstruction. No evidence of appendicitis. Peritoneal Cavity: No ascites, collection or mesenteric inflammatory response. No free air. Lymph Nodes: Within normal limits. Bones: Within normal limits for the patient's age. Posterior spinal surgery is seen at L4-L5. Soft Tissues: There is a small fat containing umbilical hernia. PELVIS: Bladder: Symmetric distention, no gross wall thickening. Reproductive Organs: The uterus is absent. Lymph Nodes: Within normal limits. Bones: Within normal limits for the patient's age. IMPRESSION: 1. No evidence of nephrolithiasis or hydronephrosis. 2. No evidence of aortic dissection. 3. Colonic diverticulosis without evidence of acute diverticulitis. 4. Hepatomegaly and hepatic steatosis. RADIATION DOSE DELIVERED: 676.07mGy.cm Total DLP DATA REPOSITORY: All CT scans at this facility are submitted to the National Radiology Data Registry (NRDR) Dose Index Registry (DIR) with the [employer] (ACR). RADIATION OPTIMIZATION: All CT scans at this facility use at least one of these dose optimization te chniques: automated exposure control; mA and/or kV adjustment per patient size (includes targeted exa ms where dose is matched to clinical indication); or iterative reconstruction.
[2024-05-10] MEDS: Na Phosphate Enema-Adult 133 ML BTL PR (15:10)
--- NOTE | 2024-05-10 15:24 | ED.GENADUL_ITS ---
Discharge Plan Disposition Patient Disposition: Home Condition: Stable Discharge Details Clinical Impression: Back pain, Increased stool volume Primary Care Provider: Felicia Wise ED Provider: Brooklyn Gaffney Home Meds and New Rx's Prescriptions: New senna 8.6 mg capsule 8.6 mg PO BID Qty: 14 0RF cyclobenzaprine 5 mg tablet 5 mg PO TID PRNQty: 10 0RF Continued naproxen sodium [Aleve] 220 mg capsule 220 mg PO BID PRN solifenacin [Vesicare] 10 mg tablet 10 mg PO DAILY venlafaxine [Effexor XR] 75 mg capsule,extended release 24hr 150 mg PO DAILY levothyroxine [Synthroid] 75 mcg tablet 88 mcg PO DAILY cholecalciferol (vitamin D3) 25 mcg (1,000 unit) capsule 25 mcg PO DAILY fluticasone propionate 50 mcg/actuation spray,suspension 1 spray intranasal BID Rx Instructions: administer into each nostril lisinopril 10 mg tablet 10 mg PO DAILY metoprolol tartrate 25 mg tablet 25 mg PO BID polyethylene glycol 3350 [Miralax] 17 gram/dose powder 17 g PO DAILY PRN liraglutide [Victoza 3-Serafin] 0.6 mg/0.1 mL (18 mg/3 mL) pen injector 1.8 mg subcut Q24H pregabalin 200 mg capsule 200 mg PO BID Qty: 180 3RF simvastatin 20 MG tablet 20 mg PO HS amoxicillin 500 MG tablet 500 mg PO .PRIOR TO DENTAL No Action oxcarbazepine 150 mg tablet 150 mg PO BID Qty: 60 5RF Rx Instructions: Start 150mg BID x 5 days, then increase to 300mg BID thereafter. Discharge Instructions Additional Instructions: Take senna and MiraLAX for the next 3 to 4 days Take Flexeril as needed for musculoskeletal pain, this may make you tired and can make you lightheaded, use caution while taking this medication do not operate your vehicle for 8 hours after taking this Increased fluids Follow-up with your primary care physician tomorrow and return earlier should you have new or worsening complaints Referrals: Felicia Wise [Primary Care Provider] - 2 days Discharge Data Discharge Date/Time-TO BE ENTERED AT DEPARTURE: 05/10/24 15:51 HPI General Date/Time Provider Initiated Documentation: 05/10/24 12:23 . HPI Narrative: 73-year-old female presenting with right flank pain and constipation. She states she has had urinary frequency. Present open started approximately 3 weeks ago after weed whacking. She did she has not had a bowel movement for 1 week. Denies any current nausea or vomiting. States that she has had chills at home unsure regarding fever. Denies any known sick contacts. Denies any blood in urine. Denies any diarrhea. Related Data Home Medications ?Medication ?Instructions ?Recorded ?Confirmed simvastatin 20 mg tablet 20 mg PO HS 06/24/15 05/10/24 amoxicillin 500 mg tablet 500 mg PO .PRIOR TO DENTAL Prior 07/27/15 05/10/24 to dental work naproxen sodium 220 mg capsule 220 mg PO BID PRN 07/09/18 05/10/24 (Aleve) solifenacin 10 mg tablet (Vesicare) 10 mg PO DAILY 07/09/18 05/10/24 levothyroxine 75 mcg tablet 88 mcg PO DAILY 05/11/20 05/10/24 (Synthroid) venlafaxine 75 mg capsule,extended 150 mg PO DAILY 05/31/20 05/10/24 release 24 hr (Effexor XR) cholecalciferol (vitamin D3) 25 25 mcg PO DAILY 12/26/23 05/10/24 mcg (1,000 unit) capsule fluticasone propionate 50 1 spray intranasal BID 12/26/23 05/10/24 mcg/actuation nasal spray,suspension liraglutide 0.6 mg/0.1 mL (18 mg/3 1.8 mg subcut Q24H 12/26/23 05/10/24 mL) subcutaneous pen injector (Victoza 3-Serafin) lisinopril 10 mg tablet 10 mg PO DAILY 12/26/23 05/10/24 metoprolol tartrate 25 mg tablet 25 mg PO BID 12/26/23 05/10/24 polyethylene glycol 3350 17 17 g PO DAILY PRN 12/26/23 05/10/24 gram/dose oral powder (Miralax) pregabalin 200 mg capsule 200 mg PO BID #180 caps 03/30/24 05/10/24 cyclobenzaprine 5 mg tablet 5 mg PO TID PRN #10 tabs 05/10/24 sennosides 8.6 mg capsule (senna) 8.6 mg PO BID #14 caps 05/10/24 oxcarbazepine 150 mg tablet 150 mg PO BID #60 tabs 05/11/24 Previous Rx's ?Medication ?Instructions ?Recorded pregabalin 200 mg capsule 200 mg PO BID #180 caps 03/30/24 cyclobenzaprine 5 mg tablet 5 mg PO TID PRN #10 tabs 05/10/24 sennosides 8.6 mg capsule (senna) 8.6 mg PO BID #14 caps 05/10/24 oxcarbazepine 150 mg tablet 150 mg PO BID #60 tabs 05/11/24 Allergies Allergy/AdvReac Type Severity Reaction Status Date / Time paraben Allergy Intermediate Hives Verified 05/10/24 12:07 General Stated Complaint: FlankPain RAMANDEEP: 3 Exam Narrative Exam Narrative: Alert and oriented female in no acute distress, mild tenderness right lower quadrant and right flank, no scleral icterus, lungs clear to auscultation, cardiac rate rhythm regular, distal pulses intact all 4 extremities, right CVA tenderness alert and oriented x 4, no peripheral edema Course Vital Signs Vital signs: Vital Signs Temperature 36.6 C 05/10/24 12:04 Pulse 84 05/10/24 12:04 Respiratory Rate 16 05/10/24 12:04 Blood Pressure 149/87 H 05/10/24 12:04 Pulse Oximetry 95 05/10/24 12:04 Temperature 36.6 C 05/10/24 12:04 Pulse 84 05/10/24 12:04 Respiratory Rate 16 05/10/24 12:04 Respiratory Effort Normal 05/10/24 12:08 Blood Pressure 149/87 H 05/10/24 12:04 Pulse Oximetry 95 05/10/24 12:04 Oxygen Delivery Method Room Air 05/10/24 12:04 Oxygen Flow Rate 0 05/10/24 12:04 Pain Level 9 05/10/24 12:04 Lab/Test Results Lab/Test Results: Laboratory Tests Range/Units 05/10/24 05/10/24 05/10/24 12:01 12:50 13:23 WBC (4.4-10.8) 10^3/uL 9.85 RBC (3.93-5.22) 10^6/uL 5.23 H Hgb (11.2-15.7) g/dL 14.9 Hct (36.0-46.0) % 45.0 MCV (80-95) fL 86 MCH (27.0-33.0) pg 28.5 MCHC (32.0-36.0) % 33.1 RDW (11.7-14.6) % 13.7 Plt Count (130-400) 10^3/uL 286 MPV (8.0-11.0) fL 10.0 Immature Gran % % 0.5 Neutrophils % % 55.9 Lymphocytes % % 36.0 Monocytes % % 6.1 Eosinophils % % 1.0 Basophils % % 0.5 Nucleated RBC % (0.0-0.3) % 0.0 Absolute Neutrophils (1.2-6.7) 10^3/uL 5.50 Absolute Lymphocytes (1.2-3.4) 10^3/uL 3.55 H Absolute Monocytes (0.1-0.8) 10^3/uL 0.60 Absolute Eosinophils (0.0-0.7) 10^3/uL 0.10 Absolute Basophils (0.0-0.2) 10^3/uL 0.05 Sodium (136-145) mmol/L 135 L Potassium (3.5-5.1) mmol/L 3.9 Chloride (98-107) mmol/L 101 Carbon Dioxide (21.0-32.0) mmol/L 24.8 Anion Gap (3-11) mmol/L 9.2 BUN (7-18) mg/dL 21 H Creatinine (0.55-1.02) mg/dL 1.1 H Est GFR (CKD-EPI 2020) (mL/min/1.73m2) 52.40 Glucose (74-106) mg/dL 200 H Calcium (8.5-10.1) mg/dL 11.1 H Total Bilirubin (0.2-1.0) mg/dL 0.54 AST (15-37) U/L 27 ALT (14-59) U/L 45 Alkaline Phosphatase (46-116) U/L 93 Total Protein (6.4-8.2) g/dL 7.4 Albumin (3.4-5.0) g/dL 3.8 Lipase (16-77) U/L 37 Urine Color (Yellow) Yellow Cancelled Urine Clarity (Clear) Sl Cloudy Cancelled Urine pH (5-8) 5.5 Cancelled Ur Specific [place] (1.005-1.025) >= 1.030 H Cancelled Urine Protein (Neg-Trace) mg/dL Negative Cancelled Urine Ketones (Negative) mg/dL Trace H Cancelled Urine Blood (Negative) Negative Cancelled Urine Nitrite (Negative) Negative Cancelled Urine Bilirubin (Negative) Negative Cancelled Urine Urobilinogen (Up to 0.2) mg/dL 1.0 H Cancelled Ur Leukocyte Esterase (Negative) Negative Cancelled Urine Glucose (Negative) mg/dL 500 H Cancelled Medical Decision Making 73-year-old female in no acute distress, labs are reassuring, does have hypercalcemia, looks like this is uptrending, encouraged to follow-up with primary care physician. Will encourage patient to refrain from any vitamin D or calcium use. On CT scan patient has moderate stool per radiology interpretation and my review, will give enema to see if it improves symptoms as patient has been taking laxatives without relief. Patient had symptomatic improvement after enema. Discharged home with senna and miralax Labs without leukocytosis creatinine 1.1, baseline per patient, calcium 11.1, encouraged follow-up with primary care physician, it looks like this is uptrending, will discontinue vitamin D and patient will need this recheck recheck with pcp in 2-3 days and outpatient colonoscopy return precautions reviewed and patient expressed understanding Quality:SDOH Health Related Social Needs: No Data to Display PFSH All Active Problems (Updated 05/12/24 @ 17:06 by TOÑITO Mcgregor) Increased stool volume (Acute) Back pain (Acute) Mass of right ear (Acute) Sensation of fullness in both ears (Acute) Unspecified eustachian tube disorder, bilateral (Acute) Drug rash (Acute) Trigeminal neuralgia of right side of face (Acute) HLD (hyperlipidemia) (Chronic) HTN (hypertension) (Chronic) Arthritis (Chronic) Urinary tract infection with hematuria (Acute) UTI (urinary tract infection) (Acute) Medical History Fatigue ROBIN (obstructive sleep apnea) Carpal tunnel syndrome Onychomycosis due to dermatophyte Major depression, single episode Vitreous hemorrhage, left eye Pain of right foot Type 2 diabetes mellitus without complication Pure hypercholesterolemia Genuine stress incontinence, female Cataract H/O urinary stone Constipation Parathyroid adenoma Retinal vein occlusion Acute serous otitis media of left ear Vitamin D deficiency Streptococcal sore throat History of depression Hypercholesterolemia Psoriasis, guttate Superficial thrombophlebitis Osteopenia Branch retinal vein occlusion Obesity Stress incontinence Low back pain Hx of herpes zoster Preventative health care Screening mammogram, encounter for Hypercalcemia Adult onset diabetes mellitus with ketoacidosis Vitreous hemorrhage Hyperparathyroidism Back pain Hematuria Right leg pain Elevated liver enzymes Pain, joint, hip, left Seborrheic keratoses Jessica infection Rash, skin Acute pain in right eye Hypothyroidism Lipoma Cholecystectomy planned Surgical History S/P excision of lipoma H/O thyroidectomy hemithyroidectomy abd excision of parathyroid adenoma 12/01/17 History of cholecystectomy S/P total knee arthroplasty History of bunionectomy History of spinal fusion History of arthroplasty of both knees History of bladder suspension procedure History of appendectomy History of hysterectomy Family History Father , 70's Arthritis Osteoarthritis Bone cancer Mother Hypertension Hyperlipidemia Arthritis Osteoarthritis Osteoporosis Heart disease Sister No problems noted. Sister Rheumatic fever Social History Smoking/Tobacco Use Status: Never Smoking risk assessment performed?: Yes Alcohol Intake: never Drug use: Never Household members: spouse Housing: house Number of Children: 2 Pets and animals: Yes Pets and animals: dog(s) What is your relationship status?: Panel score (0-1 are the most socially isolated patients): 1 What type of physical activity do you participate in: none Seatbelt use: always
== END 2024-05-10 15:51 | disposition home or self-care (01) ==
LOC: ER 12:28
PROVIDERS: Emergency Provider Physician Assistant; PCP Nurse Practitioner Family
DX: M54.50 Low back pain, unspecified (principal); K59.00 Constipation, unspecified; E11.9 Type 2 diabetes mellitus without complications; E78.00 Pure hypercholesterolemia, unspecified; Z79.84 Long term (current) use of oral hypoglycemic drugs; Z98.1 Arthrodesis status
CPT/HCPCS: 80053; 83690; 96361; 96374; 99285; 71046; 74177; 81003; 85025; 99284; J0131; J3490

== ENCOUNTER 2024-07-27 16:36 | Outpatient (REF) | payer MEDICARE, SELFPAY ==
[2024-07-27 17:15] LABS: Total Volume 1450 ml
[2024-07-27 18:18] LABS: Creatinine,24hr Ur 1.35 g/24hr (0.60-1.80); Creatinine,Urine 96.52 mg/dL
[2024-07-28 09:38] LABS: Calcium Urine 23.6 mg/dL (See Note); Calcium Urine 24 hr 342 mg/24hr (100-300); Timed Urine Volume 1450 mL
== END 2024-07-27 16:37 | disposition home or self-care (01) ==
LOC: LBN 16:36
PROVIDERS: PCP Nurse Practitioner Family; Visit Provider Student in an Organized Health Care Education/Training Program
DX: E21.3 Hyperparathyroidism, unspecified (principal)
CPT/HCPCS: 81050; 82340; 82570

== ENCOUNTER 2024-08-13 22:50 | Outpatient (REF) | payer MEDICARE, SELFPAY ==
[2024-08-13 22:50] LABS: COMMENT (LAB VIEW ONLY) 142.31 mg/dL; Microalb ug/mg Crea 10.1 ug/mg Cr
== END 2024-08-13 22:51 | disposition home or self-care (01) ==
LOC: NCHCN 22:50
PROVIDERS: PCP Nurse Practitioner Family; Visit Provider Nurse Practitioner Family
DX: I10 Essential (primary) hypertension (principal)
CPT/HCPCS: 82043; 82570

== ENCOUNTER 2024-08-17 01:28 | Outpatient (CLI) | payer MEDICARE, SELFPAY ==
--- NOTE | 2024-08-17 14:35 | DI.RAD_ITS ---
Exam(s) XR KNEE RT 3V AP,LAT,VIDAL EXAM: XR KNEE RT 3V AP,LAT,VIDAL CLINICAL HISTORY: Pain of rt knee, M25.561. TECHNIQUE: 2D digital imaging was performed. Three images were obtained. AP, lateral and PA tunnel views were obtained. COMPARISON: CR RIGHT KNEE 3 VIEWS from 03/17/2010 FINDINGS: BONES: Since the prior examination, the patient has undergone a right total knee replacement. No fra cture or dislocation. JOINTS: The orthopedic hardware is in good position. No evidence of hardware loosening. SOFT TISSUE: Dystrophic calcifications are seen in the surrounding soft tissues. IMPRESSION: Stable right total knee arthroplasty. DATA REPOSITORY: RADIATION DOSE DELIVERED:
--- NOTE | 2024-08-17 14:42 | DI.RAD_ITS ---
Exam(s) XR KNEE LT 3V AP,LAT,VIDAL EXAM: XR KNEE LT 3V AP,LAT,VIDAL CLINICAL HISTORY: Pain in lt knee, M25.562. TECHNIQUE: 2D digital imaging was performed. COMPARISON: CR XR KNEE RT 3V AP,LAT,VIDAL from 08/17/2024 FINDINGS: 3 views Left knee prosthesis noted. No fracture or loosening evident. No evidence of osteomyelitis. Some d ystrophic calcification is noted adjacent to the lateral cortex of the distal femur. IMPRESSION: Stable appearance of the components of the prosthesis. No fracture or loosening evident DATA REPOSITORY: RADIATION DOSE DELIVERED:
== END 2024-08-17 01:48 ==
LOC: DI 01:28
PROVIDERS: PCP Nurse Practitioner Family; Visit Provider Nurse Practitioner Family
DX: M25.562 Pain in left knee (principal); M25.561 Pain in right knee
CPT/HCPCS: 73562

== ENCOUNTER 2024-11-11 22:44 | Outpatient (REF) | payer MEDICARE, SELFPAY ==
[2024-11-11 21:17] LABS: Abs Immature Grans 0.04 10^3/uL (0.0-0.06); Absolute Basophil Count 0.04 10^3/uL (0.0-0.2); Absolute Eosinophil Count 0.19 10^3/uL (0.0-0.7); Absolute Monocyte Count 0.56 10^3/uL (0.1-0.8); Absolute Neutrophil Count 7.88 10^3/uL (1.2-6.7); Basophils % 0.4 %; Eosinophils % 1.8 %; HCT 45.8 % (36.0-46.0); HGB 14.7 g/dL (11.2-15.7); Immature Grans % 0.4 %; Lymphocytes % 16.3 %; MCH 28.2 pg (27.0-33.0); MCHC 32.1 % (32.0-36.0); MCV 88 fL (80-95); MPV 9.8 fL (8.0-11.0); Monocytes % 5.4 %; Neutrophils % 75.7 %; Platelet Count 368 10^3/uL (130-400); RBC 5.22 10^6/uL (3.93-5.22); RDW 13.9 % (11.7-14.6); RDW-SD 45.1 fL; WBC 10.41 10^3/uL (4.4-10.8)
[2024-11-11 21:20] LABS: ESR 22 mm/hr (0-30)
[2024-11-11 21:36] LABS: ALT 29 U/L (14-59); AST 25 U/L (15-37); Albumin 3.7 g/dL (3.4-5.0); Alkaline Phosphatase 100 U/L (46-116); Anion Gap 7.9 mmol/L (3-11); BUN 13 mg/dL (7-18); Bilirubin, Total 0.6 mg/dL (0.2-1.0); C-Reactive Protein 2.99 mg/dL (<or=0.5); CO2 28.1 mmol/L (21.0-32.0); CREATININE 0.9 mg/dL (0.55-1.02); Calcium 10.8 mg/dL (8.5-10.1); Chloride 105 mmol/L (98-107); Estimated GFR 66.26 (mL/min/1.73m2); Glucose 202 mg/dL (74-106); Potassium 4.7 mmol/L (3.5-5.1); Sodium 141 mmol/L (136-145); TSH (W/Ref FT4) 1.65 uIU/mL (0.36-3.74); Total Protein 7.3 g/dL (6.4-8.2)
[2024-11-20 22:47] LABS: Parathyroid Hormone,Intact 83.5 pg/mL (19.0-88.0)
== END 2024-11-11 22:45 | disposition home or self-care (01) ==
LOC: NCHCN 22:44
PROVIDERS: PCP Nurse Practitioner Family; Visit Provider Nurse Practitioner Family
DX: M89.8X8 Other specified disorders of bone, other site (principal)
CPT/HCPCS: 80053; 83519; 85652; 84443; 85025; 86140

== ENCOUNTER 2024-11-18 11:11 | Outpatient (CLI) | payer MEDICARE, SELFPAY ==
[2024-11-18 17:18] LABS: Rheumatoid Factor 9.4 IU/mL (<12.0)
== END 2024-11-18 11:12 | disposition home or self-care (01) ==
LOC: LBO 11:12
PROVIDERS: PCP Nurse Practitioner Family; Visit Provider Nurse Practitioner Family
DX: M89.8X9 Other specified disorders of bone, unspecified site (principal)
CPT/HCPCS: 36415; 83970; 86431

== ENCOUNTER 2024-11-23 10:53 | Outpatient (REF) | payer MEDICARE, SELFPAY ==
[2024-11-23 15:19] LABS: Creatinine,Urine 111.71 mg/dL
[2024-11-23 15:26] LABS: Creatinine,24hr Ur 1.23 g/24hr (0.60-1.80); Total Volume 1100 ml
[2024-11-24 10:57] LABS: Calcium Urine 32.2 mg/dL (See Note); Calcium Urine 24 hr 354 mg/24hr (100-300); Timed Urine Volume 1100 mL
== END 2024-11-23 10:54 | disposition home or self-care (01) ==
LOC: LBN 10:53
PROVIDERS: PCP Nurse Practitioner Family; Visit Provider Student in an Organized Health Care Education/Training Program
DX: E21.3 Hyperparathyroidism, unspecified (principal)
CPT/HCPCS: 81050; 82340; 82570

== ENCOUNTER 2024-11-30 14:03 | Emergency (ER) | payer MEDICARE, SELFPAY ==
[2024-11-30] VITALS (18 sets, daily range): BP systolic 125–173; BP diastolic 63–124; PULSE 68–132; RESP 15–27; TEMP 35.9; O2SAT 91–97
--- NOTE | 2024-11-30 14:00 | RT.EKG_ITS ---
APPROVED REPORT Exam: Resting ECG Reason for Exam: Fall, Dizzyness Patient Location: E HR:70 bpm ECG Measurements Heart Rate 70 AXIS NC 193 P 58 QRSd 87 QRS -10 QT 389 T 33 QTc 421 Conclusion Sinus rhythm...normal P axis, V-rate 60- 99 Anteroseptal infarct, age indeterminate...Q >35mS, T neg, V1-V2
--- NOTE | 2024-11-30 14:14 | DI.RAD_ITS ---
Exam(s) XR HAND RT COMPLETE EXAM: XR HAND RT COMPLETE CLINICAL HISTORY: fall, pain. TECHNIQUE: 2D digital imaging was performed of the right hand. Three images were obtained. AP, late ral and oblique views were obtained. COMPARISON: No exams were available for comparison FINDINGS: BONES: No acute fracture is present. No bony destructive lesion is seen. There is abnormal alignment of the lunate with volar tilt. There is also widening of the scaffold lunate distends. JOINTS: No dislocation present. Mild degenerative changes are seen in the fingers particularly the in terphalangeal joints. SOFT TISSUE: Calcification is seen of the triangular fibrocartilage. IMPRESSION: 1. No acute fracture or dislocation in the wrist. 2. Widening of the scapholunate distance suggesting ligament tear. Volar tilt of the lunate suggesti ng VISI. These findings are likely not acute. Nonemergent MRI may be considered for further evaluat ion. DATA REPOSITORY: RADIATION DOSE DELIVERED:
--- NOTE | 2024-11-30 14:14 | DI.RAD_ITS ---
Exam(s) XR HAND LT COMPLETE EXAM: XR HAND LT COMPLETE CLINICAL HISTORY: fall, pain. TECHNIQUE: 2D digital imaging was performed of the left hand. Three views were obtained. AP, later al and oblique views were obtained. COMPARISON: No exams were available for comparison FINDINGS: BONES: No acute fracture is present. No bony destructive lesion is seen. JOINTS: No dislocation present. Degenerative changes are seen in the hand predominantly involving the interphalangeal joints and characterized by joint space narrowing and osteophytes. SOFT TISSUE: Calcification is seen of the TFCC. IMPRESSION: No acute fracture or dislocation. DATA REPOSITORY: RADIATION DOSE DELIVERED:
--- NOTE | 2024-11-30 14:19 | ED.GENADUL_ITS ---
Discharge Plan Disposition Specific Acute Inpt Facility: [facility] Condition: Serious Discharge Details Chief Complaint: Trauma Clinical Impression: Subdural hemorrhage, Contusion of left hand, Contusion of hand, right Primary Care Provider: Felicia Wise ED Provider: Nathan Kovacs Home Meds and New Rx's Prescriptions: No Action naproxen sodium [Aleve] 220 mg capsule 220 mg PO BID PRN solifenacin [Vesicare] 10 mg tablet 10 mg PO DAILY venlafaxine [Effexor XR] 75 mg capsule,extended release 24hr 150 mg PO DAILY levothyroxine [Synthroid] 75 mcg tablet 88 mcg PO DAILY lisinopril 10 mg tablet 10 mg PO DAILY metoprolol tartrate 25 mg tablet 25 mg PO BID polyethylene glycol 3350 [Miralax] 17 gram/dose powder 17 g PO DAILY PRN simvastatin 20 MG tablet 20 mg PO HS senna 8.6 mg capsule 8.6 mg PO BID Qty: 14 0RF HPI General Mode of arrival: EMS . Date/Time Provider Initiated Documentation: 11/30/24 14:10 . Limitations to Documentation: no limitations . Information obtained by: patient . History of Present Illness 74 year old F presents to the emergency department with the chief complaint of fall, described as moderate, Quality is described as aching, and is localized to the head. Patient reports no radiation. Patient started experiencing this hour(s) (1) and it has been constant. No relieving factors improve symptom(s), Patient notes no other symptoms.. Patient did receive the following treatments prior to arrival, none Related Data Home Medications ?Medication ?Instructions ?Recorded ?Confirmed simvastatin 20 mg tablet 20 mg PO HS 06/24/15 11/30/24 naproxen sodium 220 mg capsule 220 mg PO BID PRN 07/09/18 11/30/24 (Aleve) solifenacin 10 mg tablet (Vesicare) 10 mg PO DAILY 07/09/18 11/30/24 levothyroxine 75 mcg tablet 88 mcg PO DAILY 05/11/20 11/30/24 (Synthroid) venlafaxine 75 mg capsule,extended 150 mg PO DAILY 05/31/20 11/30/24 release 24 hr (Effexor XR) lisinopril 10 mg tablet 10 mg PO DAILY 12/26/23 11/30/24 metoprolol tartrate 25 mg tablet 25 mg PO BID 12/26/23 11/30/24 polyethylene glycol 3350 17 17 g PO DAILY PRN 12/26/23 11/30/24 gram/dose oral powder (Miralax) sennosides 8.6 mg capsule (senna) 8.6 mg PO BID #14 caps 05/10/24 11/30/24 Previous Rx's ?Medication ?Instructions ?Recorded sennosides 8.6 mg capsule (senna) 8.6 mg PO BID #14 caps 05/10/24 Allergies Allergy/AdvReac Type Severity Reaction Status Date / Time paraben Allergy Intermediate Hives Verified 11/30/24 14:10 General Stated Complaint: Trauma RAMANDEEP: 3 Review of Systems All systems reviewed & are unremarkable except as noted in HPI and below Constitutional Constitutional: Denies chills and Denies fever(s) Eyes Eyes: Denies loss of vision Cardiovascular Cardiovascular: Denies chest pain and Denies dyspnea Respiratory Respiratory: Denies cough and Denies dyspnea Gastrointestinal Gastrointestinal: Denies abdominal pain, Denies nausea and Denies vomiting Musculoskeletal Musculoskeletal: Denies joint swelling Neurologic Neurologic: Denies loss of vision Exam Const General: no acute distress Orientation: alert [facility] Head: no palpable skull fracture Ears: external ears normal General nose exam: external nose normal Mouth: moist mucous membranes Eyes General: appearance normal, both eyes and all related structures Neck Neck: normal visual inspection and nontender Chest Chest: no tenderness Resp Effort & Inspection: normal respiratory effort and able to speak in complete sentences Auscultation: clear to auscultation bilaterally Cardio Rate: regular rate GI Palpation: soft and nontender Skin General skin exam: no rashes or lesions noted Neuro General: patient alert and patient oriented x3 Extrem General: full ROM and capillary refill normal Psych Mental Status: mental status grossly normal Course Vital Signs Vital signs: Vital Signs Temperature 35.9 C L 11/30/24 14:03 Pulse 71 11/30/24 14:03 Respiratory Rate 18 11/30/24 14:03 Blood Pressure 158/89 H 11/30/24 14:03 Pulse Oximetry 94 11/30/24 14:03 Temperature 35.9 C L 11/30/24 14:03 Temperature Source Tympanic 11/30/24 14:03 Pulse 71 11/30/24 14:03 Respiratory Rate 18 11/30/24 14:03 Blood Pressure 158/89 H 11/30/24 14:03 Pulse Oximetry 94 11/30/24 14:03 Oxygen Delivery Method Room Air 11/30/24 14:03 Oxygen Flow Rate 0 11/30/24 14:03 Medical Decision Making 74 yo female with with hx of hld, htn, who comes in after a fall. She says she was at a neighbor's house going down stairs when she tripped on the 3rd to last step and fell forward. Did not have loc, denies any preceding symptoms to the fall, denies any chest pain or difficulty breathing. She has a mild posterior headache where she has return of blood. I am not able to visualize a laceration, will nursing clean this up. She has pupils that are equal reactive to light. No neck tenderness, no chest or abdomen tenderness or back tenderness. She does have some posterior bilateral hand pain. There is no visible or palpable deformity of the hand, she has full range of motion with intact sensation and pulses. Given her age and the fall will obtain CT head and C-spine obtain x-rays of both hands. She states this was a purely mechanical fall and had no symptoms to suggest presyncope so I do not feel any lab work is indicated Patient on my read appears to have a left-sided subdural with some midline shift, I called the radiologist and confirmed left-sided subdural approximately 6 mm with midline shift and also right frontal subarachnoid hemorrhage. No acute fractures of the C-spine. Patient's GCS is still 15, I placed a call to [facility] trauma for transfer. Awaiting callback. spoke with neurosurgery resident Dr. Hurd who recommends keppra load, keeping bp less then 140 systolic and will be ED to ED transfer, Dr. Del Angel from the ED is the accepting provider. PAtient updated continues to have gcs of 15 [facility] is not flying and local EMS crews are unable to transport with nicradipine or labetalol so [facility] will be coming to transfer the patient, will give txa given increased time for transfer and within 3 hours of injury Differential Diagnosis Differential Diagnosis: tbi, concussion, fracture ECG Data Attestation: I personally reviewed and interpreted this ECG (s) as follows: Prior ECG tracings: available for review Interpretation: sinus rate of 70 no stemi Quality:SDOH Health Related Social Needs: No Data to Display Critical Care Time Critical Care Time Critical Care Time: Yes Total Critical Care Time: 60 (minutes) Attestation: Time spent on frequent reassessments and hemodynamic monitoring and patient with intracranial hemorrhage requiring frequent reassessments and initiation of IV nicardipine for blood pressure control and potential to deteriorate at any time. PFSH All Active Problems (Updated 11/30/24 @ 15:39 by Nathan Kovacs MD) Contusion of hand, right (Acute) Contusion of left hand (Acute) Subdural hemorrhage (Acute) Mass of right ear (Acute) Sensation of fullness in both ears (Acute) Unspecified eustachian tube disorder, bilateral (Acute) Drug rash (Acute) Trigeminal neuralgia of right side of face (Acute) HLD (hyperlipidemia) (Chronic) HTN (hypertension) (Chronic) Arthritis (Chronic) Urinary tract infection with hematuria (Acute) UTI (urinary tract infection) (Acute) Medical History Fatigue ROBIN (obstructive sleep apnea) Carpal tunnel syndrome Onychomycosis due to dermatophyte Major depression, single episode Vitreous hemorrhage, left eye Pain of right foot Type 2 diabetes mellitus without complication Pure hypercholesterolemia Genuine stress incontinence, female Cataract H/O urinary stone Constipation Parathyroid adenoma Retinal vein occlusion Acute serous otitis media of left ear Vitamin D deficiency Streptococcal sore throat History of depression Hypercholesterolemia Psoriasis, guttate Superficial thrombophlebitis Osteopenia Branch retinal vein occlusion Obesity Stress incontinence Low back pain Hx of herpes zoster Preventative health care Screening mammogram, encounter for Hypercalcemia Adult onset diabetes mellitus with ketoacidosis Vitreous hemorrhage Hyperparathyroidism Back pain Hematuria Right leg pain Elevated liver enzymes Pain, joint, hip, left Seborrheic keratoses Jessica infection Rash, skin Acute pain in right eye Hypothyroidism Lipoma Cholecystectomy planned Surgical History S/P excision of lipoma H/O thyroidectomy hemithyroidectomy abd excision of parathyroid adenoma 12/01/17 History of cholecystectomy S/P total knee arthroplasty History of bunionectomy History of spinal fusion History of arthroplasty of both knees History of bladder suspension procedure History of appendectomy History of hysterectomy Family History Father , 70's Arthritis Osteoarthritis Bone cancer Mother Hypertension Hyperlipidemia Arthritis Osteoarthritis Osteoporosis Heart disease Sister No problems noted. Sister Rheumatic fever Social History Smoking/Tobacco Use Status: Never Smoking risk assessment performed?: Yes Alcohol Intake: never Drug use: Never Household members: spouse Housing: house Number of Children: 2 Pets and animals: Yes Pets and animals: dog(s) What is your relationship status?: Panel score (0-1 are the most socially isolated patients): 1 What type of physical activity do you participate in: none Seatbelt use: always
[2024-11-30] MEDS: Acetaminophen 500 MG TAB 1000 MG PO (14:50)
--- NOTE | 2024-11-30 15:09 | DI.CT_ITS ---
Exam(s) CT HEAD CERVICAL SPINE WO EXAM: CT HEAD CERVICAL SPINE WO CLINICAL HISTORY: fall, pain. TECHNIQUE: Imaging Protocol: Axial computed tomography images with coronal and sagittal reformatted images were created and reviewed COMPARISON: CT CT HEAD WO/W from 04/08/2020 MR MR IAC BRAIN WO/W from 03/16/2024 FINDINGS: There is artifact in the posterior fossa. CT Head: Ventricles and Extra axial spaces: There is an acute left subdural hemorrhage along the entire convex ity. It extends from the parietal bone inferiorly to the temporal bone. There is a maximum thicknes s of 1.5 cm. There is effacement of the adjacent sulci. There is a [id number] midline shift of a pproximately 6 mm. There is a small contralateral subarachnoid hemorrhage seen in the right frontal lobe. There is also a small right subdural hemorrhage along the right frontal convexity. There is a lso question of subarachnoid and possibly subdural hemorrhage in the right middle cranial fossa. Hemorrhage: See the above section under ventricles and extra-axial spaces. Cerebral parenchyma: There are areas of decreased attenuation in the white matter likely reflecting c hronic microvascular ischemic change. No findings are seen to suggest an acute territorial infarct. Midline shift: None. Brainstem/Cerebellum: Normal. Calvarium: Since the prior examination the patient has undergone a craniectomy involving the right oc cipital and temporal bone. There are few small foci of air seen in the right middle cranial fossa of uncertain clinical significance at this time. Please correlate with the patient's surgery. Visualized Paranasal sinuses/Mastoids: There is mucosal thickening involving all of the visualized pa ranasal sinuses. Soft Tissues: There is a large scalp hematoma overlying the left parietal and occipital bone. CT Cervical Spine: Bones: No acute fracture or subluxation. Age-appropriate degenerative changes are seen in the cervica l spine. Soft Tissues: Unremarkable. The right thyroid lobe is either absent or small. Lung Apices: Clear. IMPRESSION: 1. Acute left large subdural hematoma of maximal thickness 1.5 cm. There is a 6 mm left right midline shift. 2. Small subarachnoid hemorrhage in the right frontal lobe with a possible small right subdural hemat alen along the right frontal convexity. 3. Question of a small subarachnoid hemorrhage in possible subdural hematoma in the right middle cran ial fossa. 4. No acute fracture or subluxation in the cervical spine. 5. Since the prior examination the patient has undergone surgery involving the right occipital and te mporal bone. 6. There are few small foci of air seen in the right middle cranial fossa. Please correlate with robinson ent's surgical history. No associated fracture is seen at this time. 7. Large left scalp hematoma. 8. Findings were discussed with Dr. Kovacs on 11/30/2024. RADIATION DOSE DELIVERED: 1,574.57mGy.cm Total DLP DATA REPOSITORY: All CT scans at this facility are submitted to the National Radiology Data Registry (NRDR) Dose Index Registry (DIR) with the [employer] (A[employer]). RADIATION OPTIMIZATION: All CT scans at this facility use at least one of these dose optimization te chniques: automated exposure control; mA and/or kV adjustment per patient size (includes targeted exa ms where dose is matched to clinical indication); or iterative reconstruction.
[2024-11-30 15:36] LABS: Abs Immature Grans 0.09 10^3/uL (0.0-0.06); Absolute Basophil Count 0.03 10^3/uL (0.0-0.2); Absolute Lymphocyte Count 1.08 10^3/uL (1.2-3.4); Absolute Monocyte Count 0.55 10^3/uL (0.1-0.8); Absolute Neutrophil Count 11.27 10^3/uL (1.2-6.7); Basophils % 0.2 %; Eosinophils % 0.8 %; HCT 42.4 % (36.0-46.0); HGB 13.6 g/dL (11.2-15.7); Immature Grans % 0.7 %; Lymphocytes % 8.2 %; MCHC 32.1 % (32.0-36.0); MCV 87 fL (80-95); MPV 9.1 fL (8.0-11.0); Monocytes % 4.2 %; Neutrophils % 85.9 %; Platelet Count 318 10^3/uL (130-400); RBC 4.86 10^6/uL (3.93-5.22); RDW-SD 45.2 fL; WBC 13.12 10^3/uL (4.4-10.8)
[2024-11-30 15:48] LABS: INR 1.1 (0.9-1.1); PTT Activated 24.2 sec (20.6-30.2); Prothrombin Time 10.6 sec (9.1-11.1)
[2024-11-30] MEDS: levETIRAcetam 2,000 MG in Normal Saline 100 ML 400 MG IVPB (15:50)
[2024-11-30 15:52] LABS: ALT 21 U/L (14-59); AST 19 U/L (15-37); Albumin 3.3 g/dL (3.4-5.0); Alkaline Phosphatase 94 U/L (46-116); Anion Gap 10.5 mmol/L (3-11); BUN 14 mg/dL (7-18); Bilirubin, Total 0.6 mg/dL (0.2-1.0); CO2 27.5 mmol/L (21.0-32.0); CREATININE 0.9 mg/dL (0.55-1.02); Calcium 10.3 mg/dL (8.5-10.1); Chloride 103 mmol/L (98-107); Estimated GFR 66.26 (mL/min/1.73m2); Glucose 171 mg/dL (74-106); Sodium 141 mmol/L (136-145); Total Protein 7.6 g/dL (6.4-8.2)
[2024-11-30] MEDS: Diph,Pertuss(Acell),Tet Vac/Pf 0.5 ML SYR IM (15:52)
[2024-11-30] MEDS: niCARdipine 25 MG in Normal Saline 240 ML 50 MG IV (16:16)
[2024-11-30] MEDS: Tranexamic Acid 1,000 MG/10 ML VIAL 1000 MG IVP (16:19)
[2024-11-30] MEDS: Ondansetron 4 MG/2 ML VIAL IVP (16:39)
== END 2024-11-30 17:55 | disposition short-term general hospital (02) ==
LOC: ER 15:43
PROVIDERS: Emergency Provider Emergency Medicine; PCP Nurse Practitioner Family
DX: S06.5X0A Traumatic subdural hemorrhage without loss of consciousness, initial encounter (principal); S06.6X0A Traumatic subarachnoid hemorrhage without loss of consciousness, initial encounter; S60.222A Contusion of left hand, initial encounter; S60.221A Contusion of right hand, initial encounter; E11.9 Type 2 diabetes mellitus without complications; E78.00 Pure hypercholesterolemia, unspecified; E03.9 Hypothyroidism, unspecified; I10 Essential (primary) hypertension; Z98.1 Arthrodesis status; W10.8XXA Fall (on) (from) other stairs and steps, initial encounter; Y93.01 Activity, walking, marching and hiking; Y92.89 Other specified places as the place of occurrence of the external cause; Z23 Encounter for immunization
CPT/HCPCS: 80053; 86850; 86900; 86901; 90715; 93005; 96365; 96367; 99291; 70450; 72125; 73130; 83735; 85025; 85610; 85730; 93010; J1953; J2404; J2405